=== PATIENT | female | born 1960 | race Caucasian/White ===

== ENCOUNTER 2019-08-01 11:15 | Emergency (ER) | payer SELFPAY ==
[2019-08-01] VITALS (10 sets, daily range): BP systolic 80–129; BP diastolic 37–86; PULSE 65–100; RESP 15–18; TEMP 36.4; O2SAT 94–98; BMI 23.8
--- NOTE | 2019-08-01 11:39 | ECG_ITS ---
Measurements Intervals [place] Rate: 66 P: 64 GA: 175 QRS: 82 QRSD: 75 T: 76 QT: 407 QTc: 427 SINUS RHYTHM No previous ECG available for comparison Electronically Signed On 08-01-2019 15:04:30 CDT by Howard Pires M.D. [email or web address]
--- NOTE | 2019-08-01 11:39 | CTR_ITS ---
PROCEDURE INFORMATION: Exam: CT Angiography Chest With Contrast Exam date and time: 08/01/2019 12:13 PM Age: 59 years old Clinical indication: Abdominal pain; Generalized; Additional info: Abd pain bruit TECHNIQUE: Imaging protocol: Computed tomographic angiography of the chest with intravenous contrast. COMPARISON: No relevant prior studies available. FINDINGS: The examination performed is degraded by motion artifact. Pulmonary arteries: Poorly opacified pulmonary arteries due to bolus timing, which precludes diagnostic assessment of potential pulmonary emboli. Aorta: Uniform opacification and normal caliber of the thoracic aorta. Lungs: Interstitial prominence, chronic granulomatous disease, and bilateral airspace disease. Pleural space: No significant pleural effusion. Heart: No cardiomegaly or significant pericardial effusion. Lymph nodes: Calcified lymph nodes in association with chronic granulomatous disease. 2.5 by 1.5 by 1.2 cm noncalcified right hilar lymph node. Bones/joints: Schmorl's nodes and marginal osteophytes. IMPRESSION: 1. Poorly opacified pulmonary arteries due to bolus timing, which precludes diagnostic assessment of potential pulmonary emboli. 2. Uniform opacification and normal caliber of the thoracic aorta. 3. Interstitial prominence, chronic granulomatous disease, and bilateral airspace disease. 4. Additional findings as described above. PROCEDURE INFORMATION: Exam: CT Angiography Abdomen and Pelvis With Contrast Exam date and time: 08/01/2019 12:13 PM Age: 59 years old Clinical indication: Abdominal pain; Generalized; Additional info: Abd pain bruit TECHNIQUE: Imaging protocol: Computed tomographic angiography of the abdomen and pelvis with intravenous contrast material. 3D rendering: MIP and/or 3D reconstructed images were created by the technologist. Radiation optimization: All CT scans at this facility use at least one of these dose optimization techniques: automated exposure control; mA and/or kV adjustment per patient size (includes targeted exams where dose is matched to clinical indication); or iterative reconstruction. Contrast material: OMNI 350; Contrast volume: 95 ml; Contrast route: RT AC; COMPARISON: Right upper quadrant ultrasound 08/01/2019. RADIATION DOSE METRICS: Total DLP: 473.32 mGy-cm FINDINGS: Vascular: Atherosclerotic plaque and vascular calcification. Normal caliber of the abdominal aorta. Patency of the celiac, mesenteric, renal, and iliac arteries. Liver: 9 mm nodular hypodensity in the right hepatic lobe, which was hyperechoic on ultrasound, suggesting hemangioma. Gallbladder and bile ducts: Cholelithiasis and marked gallbladder wall thickening/edema. Biliary ductal dilatation in association with ultrasound detected choledocholithiasis. Pancreas: Mild pancreatic ductal dilatation, without focal pancreatic mass. Spleen: Splenic granulomata. Adrenals: Unremarkable adrenals. Kidneys and ureters: Normal renal morphology. No hydronephrosis. Stomach and bowel: Gastric wall thickening. Mild small bowel dilatation without a focal transition zone. Prominent stool. Appendix: Appendix not visualized. Intraperitoneal space: No significant free fluid. Lymph nodes: Subcentimeter lymph nodes. Bladder: Bladder dilatation. Reproductive: Status post hysterectomy. 3.1 by 2.1 by 2.6 cm right adnexal cyst. Bones/joints: Degenerative change and disc bulging. CT/CT angio chest abdomen pelvis IMPRESSION: 1. Cholelithiasis and marked gallbladder wall thickening/edema. 2. Biliary ductal dilatation in association with ultrasound detected choledocholithiasis. 3. Gastric wall thickening. 4. Additional findings as described above. Radiation Dose CTDIVOL = (mGy): DLP = 473.32 (mGy-cm)
[2019-08-01] MEDS: morphine 4 mg/mL SDV 1 mL IVP ×2 (11:50→17:19)
[2019-08-01] MEDS: ondansetron 2 mg/ML SDV 2 mL 4 MG IVP (11:50)
--- NOTE | 2019-08-01 11:50 | W.ED.ABDPA2 ---
HPI - Abdominal Pain General: Chief Complaint: Abdominal Pain Stated Complaint: ABD PAIN/WEAK Time Seen by Provider: 08/01/19 11:24 History of Present Illness: HPI narrative: 59-year-old female comes in complaining nausea vomiting she was seen yesterday at the walk-in clinic she has epigastric pain that radiates into the middle of her back. She states the pain is feels like it is tearing and is progressively worsened she does have reflux but does not notice any worsening lately. She is not had any GI source of bleeding no coffee-ground emesis no hematemesis no melena. She denies any fever denies any dysuria urgency or frequency says the pain is bad enough it feels like it makes her short of breath. She denies any chest pain per se. The pain does seem to radiate down into the umbilical area as well. MD elicited complaint: abdominal pain Pertinent past history: none Onset (ago): day(s) (1) Pain Consistency: constant Location: Epigastric Severity: severe Quality: stabbing, sharp and other (Tearing) Radiation: back Migration to: periumbilical Exacerbating factors: nothing Relieving factors: nothing Associated Symptoms: Reports anorexia, dyspepsia, nausea and vomiting (1 time); Denies change in stool character, coffee ground emesis, GI cramping, diarrhea, dysuria, fever(s), heartburn, hematochezia, hematuria, hematemesis, fecal incontinence, loose stools and melena Review of Systems Const: Denies: fever(s) ENMT: Denies: throat pain, ear or mastoid pain, nasal discharge or nasal congestion Card: Denies: chest pain, edema, dyspnea on exertion or orthopnea Resp: Denies: dyspnea, productive cough or non-productive cough GI: Reports: nausea and vomiting (1 time); Denies: hematemesis, coffee ground emesis, heartburn, diarrhea, GI cramping, fecal incontinence, change in stool character, hematochezia or melena : Denies: dysuria or hematuria Skin/Breast: Denies: rash or pruritus PFS ED PFSH: Medical History Anxiety and depression COPD (chronic obstructive pulmonary disease) Hypercholesteremia Hypertension Insomnia Surgical History History of hemorrhoidectomy History of total hysterectomy Social History Smoking and tobacco status: current every day smoker Alcohol intake: never Physical Exam Const: COMMON NORMALS: no acute distress GENERAL APPEARANCE: cooperative and comfortable ORIENTATION/CONSCIOUSNESS: Yes awake, Yes oriented to person, Yes oriented to place and Yes oriented to time HENMT: COMMON NORMALS: normocephalic, atraumatic, hearing grossly normal bilaterally, external ears normal, EAC's normal, TM's normal bilaterally, Normal nasal mucous membranes and turbinates present, moist oral mucous membranes and oropharynx normal HEAD & SCALP: normocephalic and atraumatic NOSE: Normal nasal mucous membranes and turbinates present EXTERNAL EAR: Yes external ears normal EXTERNAL AUDITORY CANAL: EAC's normal TYMPANIC MEMBRANE: TM's normal bilaterally Eye: COMMON NORMALS: Equal, round and reactive pupils present, EOMs intact bilaterally, conjunctivae normal and no scleral icterus CONJUNCTIVA: Yes conjunctivae normal PUPIL: Yes Equal, round and reactive pupils present Neck/C-Spine: COMMON NORMALS: full ROM, no lymphadenopathy, supple and no JVD Lymph: LYMPHATIC: no lymphadenopathy noted and no lymphedema noted Resp: COMMON NORMALS: normal respiratory effort, No retractions, No use of accessory muscles and clear to auscultation bilaterally AUSCULTATION: clear to auscultation bilaterally Cardio: COMMON NORMALS: no JVD, regular rate, regular rhythm and No murmurs present (Cardio) RATE: regular rate RHYTHM: regular rhythm GI: COMMON NORMALS: Soft to palpation and No hepatosplenomegaly present AUSCULTATION: Yes normoactive bowel sounds PALPATION: Yes Soft to palpation, No Tenderness to palpation present (GI), No Guarding due to palpation present (GI) and Yes No hepatosplenomegaly present OTHER: Loud abdominal bruit heard just above the level of the umbilicus femoral pulses diminished on the left compared to the right Extremity: COMMON NORMALS: normal to inspection, capillary refill normal, no clubbing, cyanosis or edema, no calf tenderness and no pedal edema Neuro: SENSORIUM/ORIENTATION: Yes oriented to person, Yes oriented to place and Yes oriented to time Skin: COMMON NORMALS: no rashes or lesions noted GENERAL SKIN EXAM: no rashes or lesions noted Course Vital Signs: Vital signs: Vital Signs Temperature 97.5 F L 08/01/19 11:18 Pulse Rate 70 08/01/19 17:20 Respiratory Rate 16 08/01/19 17:20 Blood Pressure 108/75 08/01/19 17:20 Pulse Oximetry 98 08/01/19 17:20 MDM - Abdominal Pain MDM Narrative: Medical decision making narrative: On initial exam patient had a auscultate a bruit with pain radiating to her back was concerned she may have a dissecting aneurysm CTA showed no aneurysm. CT did show enlarged gallbladder liver enzymes and alk phos are elevated ultrasound shows choledocholithiasis with dilation of common bile duct gallbladder wall thickening and edema consistent with cholecystitis. She is allergic to penicillin was started on Cipro and Flagyl. She will need an ERCP we do not have that capability here discussed with the patient will make arrangements for transfer to [facility] in [place] with a can provide definitive care with MRCP and subsequent laparoscopic cholecystectomy. Lab Data: Labs: Lab Results 08/01/19 08/01/19 08/01/19 Range/Units 11:44 11:44 11:44 WBC 14.1 H (4.0-10.0) 10^3/ uL RBC 4.24 (4.1-5.3) 10^6/u L Hgb 13.5 (11.5-15.3) g/dL Hct 39.9 (37.0-47.0) % MCV 94.1 (81-99) fL MCH 31.8 (28.0-34.0) pg MCHC 33.8 (30.0-36.0) g/dL RDW 12.2 (12.1-15.1) % Plt Count 368 (130-400) 10^3/c mm MPV 11.4 H (7.4-10.4) fL Neut % (Auto) 62.3 % Lymph % (Auto) 30.3 % [place] % (Auto) 5.7 % Eos % (Auto) 1.0 % Baso % (Auto) 0.3 % Neut # (Auto) 8.8 H (1.8-7.7) 10^3/u L Lymph # (Auto) 4.3 (0.8-4.8) 10^3/u L [place] # (Auto) 0.8 (0.2-0.9) 10^3/u L Eos # (Auto) 0.1 (0.0-0.8) 10^3/u L Baso # (Auto) 0.0 (0.0-0.1) 10^3/u L Nucleated RBC % (a uto) 0 % Nucleated RBCs # 0.0 /100WBC PT (10.5-13.3) SECO NDS INR (0.8-1.2) APTT (23.9-36.7) SECO NDS Sodium 138 (136-145) mmol/L Potassium 3.9 (3.5-5.1) mmol/L Chloride 99 (98-107) mmol/L Carbon Dioxide 25 (22-29) mmol/L Anion Gap 17.9 (5-19) BUN 8 (6-20) mg/dL Creatinine 0.5 (0.5-0.9) mg/dL GFR Calculation 126.7 (90-130) mL/min Glucose 110 (65-115) mg/dL Calculated Osmolal ity 283 L (285-295) mOsm/k g Lactate (0.5-2.2) mmol/L Calcium 9.7 (8.5-10.5) mg/dL Total Bilirubin 0.4 (0.15-1.2) mg/dL AST 122 H (0-32) U/L ALT 49 H (0-33) U/L Alkaline Phosphata se 212 H (35-105) IU/L Troponin T Baselin e (0-10) ng/L Troponin T 120 Min [place] (0-10) ng/L Delta Troponin T (0-10) ABS# Total Protein 7.5 (6.6-8.7) g/dL Albumin 4.0 (3.5-5.2) g/dL Globulin 3.5 (1.3-4.6) g/dL Lipase 19 (13-60) U/L Urine Color (Yellow) Urine Appearance (CLEAR) Urine pH (5-7) Ur Specific Gravit y (1.005-1.030) Urine Protein (Negative) Urine Glucose (UA) (Normal) Urine Ketones (Negative) Urine Blood (Negative) Urine Nitrate (Negative) Urine Bilirubin (NEGATIVE) Urine Urobilinogen (Negative) mg/dL Ur Leukocyte [place]er[place]se (Negative) Blood Type A Negative Rho(D) Type Negative Antibody Screen Negative 08/01/19 08/01/19 08/01/19 Range/Units 11:44 11:44 11:54 WBC (4.0-10.0) 10^3/ uL RBC (4.1-5.3) 10^6/u L Hgb (11.5-15.3) g/dL Hct (37.0-47.0) % MCV (81-99) fL MCH (28.0-34.0) pg MCHC (30.0-36.0) g/dL RDW (12.1-15.1) % Plt Count (130-400) 10^3/c mm MPV (7.4-10.4) fL Neut % (Auto) % Lymph % (Auto) % [place] % (Auto) % Eos % (Auto) % Baso % (Auto) % Neut # (Auto) (1.8-7.7) 10^3/u L Lymph # (Auto) (0.8-4.8) 10^3/u L [place] # (Auto) (0.2-0.9) 10^3/u L Eos # (Auto) (0.0-0.8) 10^3/u L Baso # (Auto) (0.0-0.1) 10^3/u L Nucleated RBC % (a uto) % Nucleated RBCs # /100WBC PT 12.40 (10.5-13.3) SECO NDS INR 0.90 (0.8-1.2) APTT 29.4 (23.9-36.7) SECO NDS Sodium (136-145) mmol/L Potassium (3.5-5.1) mmol/L Chloride (98-107) mmol/L Carbon Dioxide (22-29) mmol/L Anion Gap (5-19) BUN (6-20) mg/dL Creatinine (0.5-0.9) mg/dL GFR Calculation (90-130) mL/min Glucose (65-115) mg/dL Calculated Osmolal ity (285-295) mOsm/k g Lactate 0.5 (0.5-2.2) mmol/L Calcium (8.5-10.5) mg/dL Total Bilirubin (0.15-1.2) mg/dL AST (0-32) U/L ALT (0-33) U/L Alkaline Phosphata se (35-105) IU/L Troponin T Baselin e 7 (0-10) ng/L Troponin T 120 Min [place] (0-10) ng/L Delta Troponin T (0-10) ABS# Total Protein (6.6-8.7) g/dL Albumin (3.5-5.2) g/dL Globulin (1.3-4.6) g/dL Lipase (13-60) U/L Urine Color (Yellow) Urine Appearance (CLEAR) Urine pH (5-7) Ur Specific Gravit y (1.005-1.030) Urine Protein (Negative) Urine Glucose (UA) (Normal) Urine Ketones (Negative) Urine Blood (Negative) Urine Nitrate (Negative) Urine Bilirubin (NEGATIVE) Urine Urobilinogen (Negative) mg/dL Ur Leukocyte [place]er[place] ase (Negative) Blood Type Rho(D) Type Antibody Screen 08/01/19 08/01/19 Range/Units 12:49 13:44 WBC (4.0-10.0) 10^3/ uL RBC (4.1-5.3) 10^6/u L Hgb (11.5-15.3) g/dL Hct (37.0-47.0) % MCV (81-99) fL MCH (28.0-34.0) pg MCHC (30.0-36.0) g/dL RDW (12.1-15.1) % Plt Count (130-400) 10^3/c mm MPV (7.4-10.4) fL Neut % (Auto) % Lymph % (Auto) % [place] % (Auto) % Eos % (Auto) % Baso % (Auto) % Neut # (Auto) (1.8-7.7) 10^3/u L Lymph # (Auto) (0.8-4.8) 10^3/u L [place] # (Auto) (0.2-0.9) 10^3/u L Eos # (Auto) (0.0-0.8) 10^3/u L Baso # (Auto) (0.0-0.1) 10^3/u L Nucleated RBC % (a uto) % Nucleated RBCs # /100WBC PT (10.5-13.3) SECO NDS INR (0.8-1.2) APTT (23.9-36.7) SECO NDS Sodium (136-145) mmol/L Potassium (3.5-5.1) mmol/L Chloride (98-107) mmol/L Carbon Dioxide (22-29) mmol/L Anion Gap (5-19) BUN (6-20) mg/dL Creatinine (0.5-0.9) mg/dL GFR Calculation (90-130) mL/min Glucose (65-115) mg/dL Calculated Osmolal ity (285-295) mOsm/k g Lactate (0.5-2.2) mmol/L Calcium (8.5-10.5) mg/dL Total Bilirubin (0.15-1.2) mg/dL AST (0-32) U/L ALT (0-33) U/L Alkaline Phosphata se (35-105) IU/L Troponin T Baselin e (0-10) ng/L Troponin T 120 Min [place] 6.00 (0-10) ng/L Delta Troponin T -1.00 L (0-10) ABS# Total Protein (6.6-8.7) g/dL Albumin (3.5-5.2) g/dL Globulin (1.3-4.6) g/dL Lipase (13-60) U/L Urine Color Yellow (Yellow) Urine Appearance Clear (CLEAR) Urine pH 6.5 (5-7) Ur Specific Gravit y 1.005 (1.005-1.030) Urine Protein Neg (Negative) Urine Glucose (UA) Norm (Normal) Urine Ketones Negative (Negative) Urine Blood Neg (Negative) Urine Nitrate Negative (Negative) Urine Bilirubin Neg (NEGATIVE) Urine Urobilinogen Norm (Negative) mg/dL Ur Leukocyte [place]er[place] ase Negative (Negative) Blood Type Rho(D) Type Antibody Screen Discharge Plan Discharge Patient Disposition: Xfer Short-Term Hosp Clinical Impression: Choledocholithiasis with acute cholecystitis Condition: Stable Referrals: Talib Mcmahan MD [Family Provider] - Discharge Date/Time: 08/01/19 17:21 Coding Level of Care Code ED Rail Technician for Chg Fwd Exam Comprehensive
[2019-08-01] MEDS: diphenhydrAMINE 50 mg/mL SDV 1mL 25 MG IVP (11:54)
[2019-08-01] MEDS: morphine 4 mg/mL SDV 1 mL 2 MG IVP (12:02)
[2019-08-01] MEDS: hydrocortisone inj 100 MG in sodium chloride 0.9% (100 ml) 100 ML 10.2 MG IV (12:02)
[2019-08-01 12:11] LABS: Partial Thromboplastin Time 29.4 SECONDS (23.9-36.7)
[2019-08-01 12:19] LABS: Alanine Aminotransferase 49 U/L (0-33); Alkaline Phosphatase 212 IU/L (35-105); Anion Gap 17.9 (5-19); Aspartate Amino Transferase 122 U/L (0-32); Blood Urea Nitrogen 8 mg/dL (6-20); Calcium 9.7 mg/dL (8.5-10.5); Carbon Dioxide 25 mmol/L (22-29); Chloride 99 mmol/L (98-107); Globulin 3.5 g/dL (1.3-4.6); Glomerular Filtration Rate 126.7 mL/min (90-130); Glucose 110 mg/dL (65-115); Lipase 19 U/L (13-60); Osmolality Calculated 283 mOsm/kg (285-295); Potassium 3.9 mmol/L (3.5-5.1); Sodium 138 mmol/L (136-145); Total Bilirubin 0.4 mg/dL (0.15-1.2); Total Protein 7.5 g/dL (6.6-8.7)
[2019-08-01 12:20] LABS: Troponin(5th) Baseline 7 ng/L (0-10)
[2019-08-01 12:21] LABS: Lactate (Lactic Acid level) 0.5 mmol/L (0.5-2.2)
--- NOTE | 2019-08-01 12:26 | PC.NURSE ---
Patient in another treatment room. Patient moved to room 11. Assumed care.
--- NOTE | 2019-08-01 12:34 | USR_ITS ---
PROCEDURE INFORMATION: Exam: US Abdomen Limited, Right Upper Quadrant Exam date and time: 08/01/2019 1:15 PM Age: 59 years old Clinical indication: Abdominal pain; Additional info: Abd pain TECHNIQUE: Imaging protocol: Real-time ultrasound of the abdomen with image documentation. Examination was focused on the right upper quadrant. COMPARISON: CT angio chest abdomen pelvis 08/01/2019 12:23 PM FINDINGS: Liver: No focal hepatic mass. Well-circumscribed 14 x 8 x 9 mm hyperechoic nodular lesion in the right hepatic lobe, suggesting hemangioma. Gallbladder: Cholelithiasis, 5 mm gallbladder polyp, and gallbladder wall thickening/edema. Assessment of a sonographic Alvarez sign was not reported by the scanning technologist. Common bile duct: Choledocholithiasis and biliary ductal dilatation, with the common bile duct measuring 7 mm in diameter. Pancreas: No acute sonographic abnormality in the visualized pancreas. Right kidney: Normal right renal morphology. No hydronephrosis. Aorta: Normal caliber of the visualized abdominal aorta. Inferior vena cava: Unremarkable IVC. US/US gall bladder [id number] IMPRESSION: 1. Cholelithiasis, 5 mm gallbladder polyp, and gallbladder wall thickening/edema. 2. Choledocholithiasis and biliary ductal dilatation, with the common bile duct measuring 7 mm in diameter.
[2019-08-01 12:43] LABS: Basophils % 0.3 %; Eosinophils # 0.1 10^3/uL (0.0-0.8); Hematocrit 39.9 % (37.0-47.0); Hemoglobin 13.5 g/dL (11.5-15.3); Lymphocytes # 4.3 10^3/uL (0.8-4.8); Lymphocytes % 30.3 %; Mean Corpuscular HGB Conc 33.8 g/dL (30.0-36.0); Mean Corpuscular Hemoglobin 31.8 pg (28.0-34.0); Mean Corpuscular Volume 94.1 fL (81-99); Mean Platelet Volume 11.4 fL (7.4-10.4); Monocytes # 0.8 10^3/uL (0.2-0.9); Monocytes % 5.7 %; Neutrophils # 8.8 10^3/uL (1.8-7.7); Neutrophils % 62.3 %; Nucleated Red Blood Cells % 0 %; Platelet Count 368 10^3/cmm (130-400); Red Blood Count 4.24 10^6/uL (4.1-5.3); Red Cell Distribution Width 12.2 % (12.1-15.1); White Blood Count 14.1 10^3/uL (4.0-10.0)
--- NOTE | 2019-08-01 12:51 | PC.NURSE ---
Placed patient on bedpan and collected urine sample.
[2019-08-01] MEDS: metroNIDAZOLE IV 500 MG/100 ML PREMIX 100 MG IV (13:00)
[2019-08-01 13:17] LABS: Add Urine Microscopic? NO
[2019-08-01 13:20] LABS: Urine Appearance Clear (CLEAR); Urine Color Yellow (Yellow)
[2019-08-01 13:21] LABS: Bilirubin Urine Neg (NEGATIVE); Blood Urine Neg (Negative); Glucose Urine UA Norm (Normal); Ketones Urine Negative (Negative); Leukocyte Esterase Urine Negative (Negative); Nitrate Urine Negative (Negative); Protein Urine Neg (Negative); Specific Gravity, Urine 1.005 (1.005-1.030); Urobilinogen Urine Norm (Negative); pH Urine 6.5 (5-7)
[2019-08-01] MEDS: ciprofloxacin 400 MG/200 ML PREMIX 200 MG IV (14:01)
[2019-08-01] MEDS: sodium chloride 0.9% 1,000 ML 999 ML IV (14:20)
[2019-08-01] MEDS: iohexol 350 mg/mL 100 mL Btl IV (14:43)
--- NOTE | 2019-08-01 17:39 | ECG_ITS ---
Measurements Intervals [place] Rate: 76 P: 59 IA: 162 QRS: 79 QRSD: 79 T: 74 QT: 370 QTc: 418 SINUS RHYTHM WITH SINUS ARRHYTHMIA No previous ECG available for comparison Electronically Signed On 08-02-2019 21:07:27 CDT by Howard Pires M.D. [email or web address]
== END 2019-08-01 17:21 | disposition short-term general hospital (02) ==
PROVIDERS: Emergency Provider Family Medicine; Family Provider Family Medicine
DX: K80.42 Calculus of bile duct with acute cholecystitis without obstruction (principal); J44.9 Chronic obstructive pulmonary disease, unspecified; I10 Essential (primary) hypertension; F17.210 Nicotine dependence, cigarettes, uncomplicated
CPT/HCPCS: 12345; 36415; 71275; 74174; 76705; 80053; 81003; 83605; 83690; 84484; 85025; 85610; 85730; 86850; 86900; 87040; 87077; 87186; 87205; 93005; 96365; 96366; 96367; 96368; 96375; 96376; 99283; 99285; J0744; J1200; J1720; J2270; J2405; J7030; Q9967; S0030

== ENCOUNTER 2019-09-04 06:44 | Outpatient (CLI) | payer SELFPAY ==
--- NOTE | 2019-09-04 07:15 | MR_ITS ---
WS: [id number] MRI LUMBAR SPINE NONCONTRAST TECHNIQUE: Sagittal T1, T2 and STIR imaging. Axial T1 and T2 imaging. CLINICAL INFORMATION: back pain COMPARISON: MRI 9 FINDINGS: Mild lumbar curve. No acute compression. Mild disc bulging L4-L5 and L5-S1 with endplate degenerative changes. L1-L2: Normal. L2-L3: Normal L3-4: No significant disc bulging. Mild facet arthropathy. Spinal canal and foramen are patent. L4-5: Slight annular bulging with impingement left subarticular recess and traversing left L5 nerve r oot. Mild left and no significant right foraminal narrowing. Moderate facet arthropathy. L5-S1: Shallow bilobed central protrusion impinges the traversing S1 nerve roots bilaterally, left gr eater than right. Recommend correlation for left S1 nerve root symptoms. Moderate right and mild left foraminal narrowing. Mild facet arthropathy. Visualized pelvic bony structures: Normal. Paravertebral soft tissues: Normal. MR/MR lumbar spine wo con* [id number] IMPRESSION: 1. Mild lumbar curve. No acute compression. Disc bulging worse L4-L5 and L5-S1 similar to 2016. 2. Disc bulging L4-5 with impingement on traversing left L5 nerve root with mi ld left foraminal narrowing. This appears unchanged since 2016. 3. Shallow central protrusion with impingement on the traversing left greater than right S1 nerve roots. This is progressed slightly since 2016. Moderate rig ht foraminal narrowing with impingement on the exiting right L5 nerve root appe ars unchanged. Mild left foraminal narrowing at this level. 4. Moderate facet arthropathy 6 L4-L5 and L5-S1.
== END 2019-09-04 06:45 | disposition home or self-care (01) ==
LOC: RADSHAW 06:47
PROVIDERS: PCP Family Medicine; Visit Provider Family Medicine
DX: M54.9 Dorsalgia, unspecified (principal); M51.26 Other intervertebral disc displacement, lumbar region; M47.817 Spondylosis without myelopathy or radiculopathy, lumbosacral region
CPT/HCPCS: 36415; 72148; 80061; 80076

== ENCOUNTER 2021-01-11 12:55 | Outpatient (CLI) | payer MEDICAID, SELFPAY ==
--- NOTE | 2021-01-11 13:03 | XR_ITS ---
WS: [id number] LUMBAR SPINE: 3 VIEWS TECHNIQUE: AP, lateral and L5-S1 spot. HISTORY: LOWER BACK PAIN COMPARISON: 04/12/2014 Lumbar vertebra are normally aligned. Severe disc space narrowing at L4-5 and L5-S1 with severe facet joint arthritis. Significant narrowin g of the foramina at the L5-S1 level. No fracture. SI joints are symmetric bilaterally. No soft tissue abnormalities. Prior cholecystectomy. Numerous calcifications within the aorta. XR/XR lumbar spine 2-3V* [id number] IMPRESSION: 1. Severe degenerative disc disease and facet arthritis at L4-5 and L5-S1. 2. No fracture. 3. Prior cholecystectomy.
== END 2021-01-11 12:56 | disposition home or self-care (01) ==
PROVIDERS: PCP Family Medicine; Visit Provider Internal Medicine
DX: M54.50 Low back pain, unspecified (principal); M51.36 Other intervertebral disc degeneration, lumbar region; Z90.49 Acquired absence of other specified parts of digestive tract
CPT/HCPCS: 72100

== ENCOUNTER 2021-05-12 12:34 | Outpatient (CLI) | payer MEDICAID, SELFPAY ==
--- NOTE | 2021-05-12 12:55 | XRR_ITS ---
PROCEDURE INFORMATION: Exam: XR Abdomen Exam date and time: 05/12/2021 12:56 PM Age: 61 years old Clinical indication: Abdominal pain; Generalized; Prior surgery; Surgery date: 6+ months; Surgery type: Gb/hyst; Patient HX: Chronic abd pain x 1 year; Additional info: Chronic abdominal pain TECHNIQUE: Imaging protocol: XR of the abdomen. Views: Frontal supine view of the abdomen. 1 View. COMPARISON: CT angio chest abdomen pelvis 08/01/2019 12:23 PM FINDINGS: Gastrointestinal tract: Normal. No bowel dilation. Bones/joints: Unremarkable. XR/XR KUB [id number] IMPRESSION: No acute findings.
== END 2021-05-12 12:35 | disposition home or self-care (01) ==
PROVIDERS: PCP Family Medicine; Visit Provider Family Medicine
DX: R10.9 Unspecified abdominal pain (principal); G89.29 Other chronic pain
CPT/HCPCS: 74018

== ENCOUNTER 2021-05-23 13:25 | Outpatient (CLI) | payer MEDICAID, SELFPAY ==
--- NOTE | 2021-05-23 13:40 | CT_ITS ---
WS: [id number] LDCT LUNG CANCER SCREENING HISTORY: HX OF TOBACCO USE TECHNIQUE: Axial imaging performed from the apices to 1 cm below the costophrenic angles. Coronal and sagittal reformats are submitted with axial MIP series. All CT scans at [facility] use at least one of these dose optimization techniques: automated exposure control; mA and/or kV adjustment per patient size (includes targeted exams where dose is matched to clinical indication); or iterativ e reconstruction. DLP: 74.51 mGy.cm DIvol: Mean CTDIvol: 1.60 (mGy) COMPARISON: 08/01/2019 Diagnostic quality: Satisfactory Lung Nodules: Mild diffuse groundglass attenuation throughout all lobes. There are a few 2 to 3 mm pu lmonary nodule at the LEFT apex. No mass or pneumonia. No endobronchial lesions. Heart: Normal size heart. No effusion. Other findings: Benign calcified RIGHT hilar lymph nodes. Very minimal atherosclerosis in the thoraci c aorta. Small hiatal hernia. Prior cholecystectomy. No adrenal mass. CT/CT lung screening [id number] IMPRESSION: LUNG-RADS: 2-Benign Appearance or Behavior FOLLOW UP: 12 Month: Continue annual screening with LDCT OTHER FINDINGS (S MODIFIER): None.
== END 2021-05-23 13:26 | disposition home or self-care (01) ==
PROVIDERS: PCP Family Medicine; Visit Provider Family Medicine
DX: Z12.2 Encounter for screening for malignant neoplasm of respiratory organs (principal); Z87.891 Personal history of nicotine dependence; M51.16 Intervertebral disc disorders with radiculopathy, lumbar region; M51.37 Other intervertebral disc degeneration, lumbosacral region
CPT/HCPCS: 71271; 72110; 99203; 99999

== ENCOUNTER 2021-06-02 09:45 | Outpatient (CLI) | payer MEDICAID, SELFPAY ==
--- NOTE | 2021-06-02 10:09 | MM_ITS ---
WS: [id number] Bilateral screening 3D tomosynthesis digital mammogram, 06/02/2021 Clinical Data: SCREENING Comparison: 04/30/2018, 10/04/2016. Findings: The breast parenchymal pattern shows heterogeneous density No spiculated masses or clustered calcific ations are seen. There are no secondary signs of carcinoma. MM/[place] [id number] Impression: 1. Negative bilateral mammogram unchanged. 2. Recommend annual screening mammograms. BIRADS: 1-Negative FOLLOW UP: 1 Year Follow-up The CAD production checker was used.
== END 2021-06-02 09:46 | disposition home or self-care (01) ==
LOC: RAD 09:50
PROVIDERS: PCP Family Medicine; Visit Provider Family Medicine
DX: Z12.31 Encounter for screening mammogram for malignant neoplasm of breast (principal)
CPT/HCPCS: 77063; 77067

== ENCOUNTER 2021-07-07 11:00 | Outpatient (CLI) | payer MEDICAID, SELFPAY ==
--- NOTE | 2021-07-07 11:45 | MR_ITS ---
WS: [id number] MRI LUMBAR SPINE NONCONTRAST HISTORY: Chronic low back pain with RIGHT leg pain and numbness. COMPARISON: 09/04/2019 TECHNIQUE: Sagittal and axial multisequence imaging is submitted. Mild increase in the thoracic kyphosis. Very minimal RIGHT curvature of the lumbar spine. Moderate disc space narrowing and desiccation at L4-5 and L5-S1. There is a small amount of marrow ed ger throughout the L5 vertebral body which is new when progressed since 2019. Conus terminates normally at L1. L1-L2: Normal. L2-L3: Normal. L3-L4: Very minimal facet joint arthritis. No stenosis. L4-L5: Mild diffuse annular disc bulging with a LEFT foraminal disc protrusion. There is flattening a nd encroachment upon the ventral thecal sac and narrowing of the LEFT foramen. Mild progression of th e degenerative disc disease since the prior study with moderate ligamentum flavum and facet arthritis . There is impingement upon the traversing LEFT L5 nerve root with moderate LEFT foraminal stenosis a nd mild contact on the LEFT L4 nerve root. Mild RIGHT foraminal stenosis. L5-S1: Diffuse annular disc bulging. Central disc protrusion with mild contact on the thecal sac. The re is an additional shallow disc protrusion in the RIGHT foramen. Disc protrusion contacts the unders urface of the exiting RIGHT L5 nerve root. Moderate facet joint arthritis. Very mild encroachment upo n the subarticular recesses. Moderate bilateral foraminal stenosis, RIGHT greater than LEFT. Paravertebral soft tissues are normal. MR/MR lumbar spine wo con* [id number] IMPRESSION: 1. Diffuse annular disc bulging with a LEFT foraminal disc protrusion at L4-5. Mild progression since the prior study. There is disc impingement upon the tra versing LEFT L5 nerve root with moderate LEFT foraminal stenosis. Mild contact on the LEFT L4 nerve root. 2. Mild RIGHT foraminal stenosis at L4-5. 3. Diffuse annular disc bulging with a central and RIGHT foraminal disc protru sions. Mild disc encroachment upon the subarticular recesses. Moderate bilatera l foraminal stenosis, RIGHT greater than LEFT with disc contacting the RIGHT L5 nerve root. 4. Advanced degenerative disc disease at L4-5 and L5-S1 with mild progression of marrow edema and L5.
== END 2021-07-07 11:01 | disposition home or self-care (01) ==
PROVIDERS: PCP Family Medicine; Visit Provider Physician Assistant
DX: M54.16 Radiculopathy, lumbar region (principal)
CPT/HCPCS: 72148

== ENCOUNTER → 2021-08-01 08:33 | Outpatient (BNVA) | payer MEDICAID, SELFPAY | PROVIDERS: PCP Family Medicine; Visit Provider Physician Assistant | DX: M51.37 Other intervertebral disc degeneration, lumbosacral region (principal); M51.36 Other intervertebral disc degeneration, lumbar region; M54.16 Radiculopathy, lumbar region | CPT/HCPCS: 99203; 99204; 99213 ==

== ENCOUNTER 2021-10-25 | Day surgery (SDC) | payer MEDICAID, SELFPAY ==
--- NOTE | 2021-10-25 | SCC_ITS ---
Procedure done: 1. L5/S1 Interbody fusion with posterolateral fusion 2. Instrumentation L4-S1 3. Lumbopelvic instrumentation 4. Cage at L5/S1 5. Laminectomy L4/5 laminectomy with partial facetectomies 6. Laminectomy L5/S1 laminectomy with partial facetomies 7. use of autograft from same incision 8. allograft 9. Bone marrow aspirate from right iliac crest 10.Use of computer navigation 20 seconds of fluoroscopic guidance, for a cumulative dose of 25.5 mGy, was provided to Dr. Conde by the radiology department. C-arm images of the lumbar spine were saved for the patient's permanent record. [facility]
--- NOTE | 2021-10-25 | XR_ITS ---
WS: [id number] Lumbar spine, C-arm fluoroscopy views, 10/25/2021 Clinical Data: L4 to the sacrum instrumented fusion Comparison: Lumbar spine, 05/23/2021. Findings: Dr. Conde performed a posterior lumbosacral fusion from L4 to S1. Reason artificial disc at L5-S1. XR/XR lumbar spine 2-3V* [id number] Impression: Posterior lumbosacral fusion L4-S1.
--- NOTE | 2021-10-25 06:27 | P.ANESUD_ITS ---
Pre-Anesthetic Update Pre-Anesthetic Assessment: Date of Surgery/Procedure: 10/25/21 Preop Chantale gnosis: Degenerative disc disease lumbar spine, low back pain with radiculopathy Proposed Procedure: Operation Date: 10/25/21 07:00 Proposed Procedures p PSF L4-S1 [id number]/M54.16(Not Applicable) - Kulwinder Conde, DO Any changes to Pre-Anesthetic Assessment?: No Last Intake: > 8 hrs Exam: Pre-Anes Outpt Exam: alert, oriented x 3, clear to auscultation bilaterally and regular rate & rhythm Cardiac Studies: No Data to Display
== END 2021-10-25 23:00 | disposition home or self-care (01) ==
LOC: OR 12-17 19:32
PROVIDERS: PCP Family Medicine; Visit Provider Orthopaedic Surgery
DX: Z01.818 Encounter for other preprocedural examination (principal)
CPT/HCPCS: 72100; 76000; 86850; 86900

== ENCOUNTER 2021-10-25 12:12 | Inpatient (IN) | payer MEDICAID, SELFPAY ==
[2021-10-20 09:33] VITALS: BMI 21.9
--- NOTE | 2021-10-20 10:08 | P.ANESASSM_ITS ---
Pre-Anesthetic Assessment Height/Weight: Height 1.57 m Weight 54.431 kg Preop Diagnosis: Degenerative disc disease lumbar spine, low back pain with radiculopathy PLIF Familial anesthetic complications: None Social Tobacco and No alcohol Exam alert, oriented x 3, clear to auscultation bilaterally and regular rate & rhythm Airway Mallampati: Class II Dentition: false Pulmonary Chronic Obstructive Pulmonary Disease CV/HEM Hypertension None reported Hepatic None reported GI Gastroesophageal Reflux Disease Metabolic None reported Musc/skel Fibromyalgia, Lower Back Pain and Osteoarthritis/DJD Neuropsych None reported Anesthetic Plan ASA status: 2 Anesthesia: General Risk of > 500 ml blood loss (7ml/kg in children): Yes, adequate IV access and fluids planned Medications/Allergies Home Medications Medication Instructions Recorded Confirmed Last Taken Type diclofenac sodium 75 mg 75 mg PO BID 30 days #60 tabs 10/12/20 10/20/21 Unknown Rx tablet,delayed release lisinopril 20 mg tablet 20 mg PO DAILY #90 tabs 11/07/20 10/20/21 Unknown Rx citalopram 40 mg tablet 40 mg PO DAILY #90 tabs 01/09/21 10/20/21 Unknown Rx pregabalin 200 mg capsule (Lyrica) 200 mg PO BID 30 days #60 caps 02/20/21 10/20/21 Unknown Rx clonazepam 1 mg tablet 1 mg PO TID #90 tabs 03/13/21 10/20/21 Unknown Rx omeprazole 20 mg capsule,delayed 20 mg PO DAILY #90 caps 03/13/21 10/20/21 Unknown Rx release hydrocodone 10 mg-acetaminophen 1 tab PO Q8H PRN chronic pain 30 06/08/21 10/20/21 Unknown Rx 325 mg tablet days #90 tabs cyclobenzaprine 10 mg tablet 10 mg PO BEDTIME 10/20/21 10/20/21 Unknown History estradiol 1 mg tablet 1 mg PO DAILY 10/20/21 10/20/21 Unknown History tiotropium bromide 18 mcg capsule 1 cap inhalation DAILY 10/20/21 10/20/21 Unknown History with inhalation device (Spiriva with HandiHaler) Allergies Allergy/AdvReac Type Severity Reaction Status Date / Time acetaminophen [From Percocet] Allergy ITCHING Verified 08/01/21 08:41 codeine Allergy ITCH Verified 08/01/21 08:41 Iodinated Contrast Media Allergy RASH Verified 08/01/21 08:41 nalbuphine [From Nubain] Allergy ANAPHYLAXIS Verified 08/01/21 08:41 oxycodone [From Percocet] Allergy ITCHING Verified 08/01/21 08:41 penicillin V Allergy SWELLING Verified 08/01/21 08:41 [facility] Anesthesia Medical History Anxiety and depression COPD (chronic obstructive pulmonary disease) Hypercholesteremia Hypertension Hypoestrogenism Insomnia Lumbar back pain with radiculopathy affecting lower extremity Surgical History History of cholecystectomy History of hemorrhoidectomy History of total hysterectomy Social History (Updated 10/20/21 @ 09:25 by Lucila Mcgill) Smoking and tobacco status: current every day smoker cigarettes Years cigarettes smoked: 45 Number of cigarettes per day: >20 Second hand smoke exposure: No Smoking risk assessment/counseling performed?: No Alcohol intake: never Data Anesthesia Cardiac Studies: No Data to Display
[2021-10-20 10:13] LABS: Basophils # 0.1 10^3/uL (0.0-0.1); Basophils % 0.6 %; Eosinophils # 0.1 10^3/uL (0.0-0.8); Eosinophils % 0.9 %; Hematocrit 45.6 % (37.0-47.0); Hemoglobin 15.3 g/dL (11.5-15.3); Lymphocytes # 5.1 10^3/uL (0.8-4.8); Lymphocytes % 46.6 %; Mean Corpuscular HGB Conc 33.6 g/dL (30.0-36.0); Mean Corpuscular Hemoglobin 30.5 pg (28.0-34.0); Mean Corpuscular Volume 90.8 fl (81-99); Mean Platelet Volume 10.9 fL (7.4-10.4); Monocytes # 0.5 10^3/uL (0.2-0.9); Monocytes % 4.6 %; Neutrophils # 5.12 10^3/uL (1.8-7.7); Neutrophils % 47.1 %; Nucleated Red Blood Cells % 0 %; Platelet Count 309 10^3/cmm (130-400); Red Blood Count 5.02 10^6/uL (4.1-5.3); Red Cell Distribution Width 12.9 % (12.1-15.1); White Blood Count 10.9 10^3/uL (4.0-10.0)
[2021-10-25] VITALS (31 sets, daily range): BP systolic 88–118; BP diastolic 55–74; PULSE 65–95; RESP 16–19; TEMP 36.3–37.1; O2SAT 94–99
--- NOTE | 2021-10-25 06:49 | P.HP_ITS ---
Providers/Chief Complaint Primary Care Provider: Tramaine Elias MD Chief Complaint: PSF L4-S1 [id number]/M54.16 History of Present Illness Rylee Holder is a 61 year old female atient reports pain at a 10/10 upon awakening, then decreases after taking hydrocodone as prescribed. Patient states she plays in her pool for exercise and states the cold water helps with her pain.? He reports equal back and leg pain with right leg greater than left.? Any activities make it much worse bending twisting lifting.? She provides care for her .? 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 She can only walk a short distance before her right leg becomes very weak and she is needs to sit down.? She denies any loss of bowel or bladder control.? She has been through injections in the past which have not afforded her any relief.? She is wanting something more definitive done. Review of Systems General: Reports: 10 or more systems reviewed and unremarkable except in HPI and below Const: Denies: fever(s), chills, body aches, fatigue or change in sleep pattern Eyes: Denies: change in vision Card: Denies: chest pain or dyspnea on exertion Resp: Denies: dyspnea, productive cough or wheezing GI: Denies: abdominal pain, nausea or vomiting Musc: Reports: extremity swelling, joint pain, joint swelling and limited range of motion; Denies: neck pain, back pain or extremity pain Neuro: Reports: numbness in extremities; Denies: headache(s) or difficulty walking Medications/Allergies Home Medications Medication Instructions Recorded Confirmed Last Taken Type diclofenac sodium 75 mg 75 mg PO BID 30 days #60 tabs 10/12/20 10/25/21 10/24/21 Rx tablet,delayed release lisinopril 20 mg tablet 20 mg PO DAILY #90 tabs 11/07/20 10/25/21 10/24/21 Rx citalopram 40 mg tablet 40 mg PO DAILY #90 tabs 01/09/21 10/25/21 10/24/21 Rx pregabalin 200 mg capsule (Lyrica) 200 mg PO BID 30 days #60 caps 02/20/21 10/25/21 10/24/21 Rx clonazepam 1 mg tablet 1 mg PO TID #90 tabs 03/13/21 10/25/21 10/24/21 Rx omeprazole 20 mg capsule,delayed 20 mg PO DAILY #90 caps 03/13/21 10/25/21 10/24/21 Rx release hydrocodone 10 mg-acetaminophen 1 tab PO Q8H PRN chronic pain 30 06/08/21 10/25/21 10/24/21 Rx 325 mg tablet days #90 tabs cyclobenzaprine 10 mg tablet 10 mg PO BEDTIME 10/20/21 10/25/21 10/24/21 History estradiol 1 mg tablet 1 mg PO DAILY 10/20/21 10/25/21 10/24/21 History tiotropium bromide 18 mcg capsule 1 cap inhalation DAILY 10/20/21 10/25/21 10/25/21 History with inhalation device (Spiriva with HandiHaler) Allergies Allergy/AdvReac Type Severity Reaction Status Date / Time acetaminophen [From Percocet] Allergy ITCHING Verified 08/01/21 08:41 codeine Allergy ITCH Verified 08/01/21 08:41 Iodinated Contrast Media Allergy RASH Verified 08/01/21 08:41 nalbuphine [From Nubain] Allergy ANAPHYLAXIS Verified 08/01/21 08:41 oxycodone [From Percocet] Allergy ITCHING Verified 08/01/21 08:41 penicillin V Allergy SWELLING Verified 08/01/21 08:41 PFSH Acute PFSH: Medical History Anxiety and depression COPD (chronic obstructive pulmonary disease) Hypercholesteremia Hypertension Hypoestrogenism Insomnia Lumbar back pain with radiculopathy affecting lower extremity Surgical History History of cholecystectomy History of hemorrhoidectomy History of total hysterectomy Social History (Updated 10/20/21 @ 09:25 by Lucila Mcgill) Smoking and tobacco status: never smoked Second hand smoke exposure: No Smoking risk assessment/counseling performed?: No Alcohol intake: never Physical Exam Narrative: Narrative:?? EXAM NARRATIVE: Jonathan alexander is alert and travis ented x3 she has g ood general appear ance normal mood n ormal affect.? She can raise up on h er heels and toes she can forward be nd to her knees sh catherine can extend with increased pain.? S he has palpable pa in to the paraspin ous musculature of the lumbar spine. ? She is positive straight leg raise on the right wors e than left.? Feet are warm good cap refill calves are supple no medial thigh tenderness d orsalis pedis post erior pulses are p alpable.. HENMT:?? COMMON NORMALS: no rmocephalic? HEAD & SCALP: normoceph alic Resp:?? COMMON NORMALS: no rmal respiratory e ffort Cardio:?? COMMON NORMALS: re gular rate and reg ular rhythm? RATE: regular rate? RHY THM: regular rhyth m GI:?? COMMON NORMALS: So ft to palpation an d non-tender? PALP ATION: Yes Soft to palpation :?? COMMON NORMALS: Ye s no CVA tendernes s? BLADDER/KIDNEY EXAM: Yes no CVA t enderness Back/Pelvis:?? COMMON NORMALS: no CVA tenderness Psych:?? COMMON NORMALS: me ntal status grossl y normal and coope rative Data : 10/20/21 10:03 A&P Assessment and plan (1) Lumbar back pain with radiculopathy affecting lower extremity: L4-pelvis fusion Status: Acute Attestations Medical Necessity Statement*: failed conservative tx Coding Level of Care Code Acute Eligibility Counselor for [employer] Fwd Diagnoses Lumbar back pain with radiculopathy affecting lower extremity M54.16
[2021-10-25] MEDS: sodium chloride 0.9% 1,000 ML 30 ML IV (07:00)
[2021-10-25] MEDS: clindamycin 900 MG/50 ML PREMIX 100 MG IV (07:20)
--- NOTE | 2021-10-25 07:50 | SUR.OPER ---
Family Notified Of Patient's Status Via Phone.
[2021-10-25] MEDS: heparin, porcine 1,000 unit/mL INJ 10 mL 10000 UNIT IRRIGATION (07:53)
--- NOTE | 2021-10-25 09:05 | SUR.OPER ---
Family Notified Of Patient's Status Via Phone.
[2021-10-25] MEDS: vancomycin 1,000 MG SDV 1000 MG XX (09:33)
[2021-10-25] MEDS: fentaNYL 50 mcg/mL INJ 2mL IVP ×2 (11:02→11:12)
--- NOTE | 2021-10-25 11:08 | P.OP_ITS ---
Operative Report Date of procedure: October 25, 2021 Pre-op diagnosis: Preop Diagnosis Degenerative disc disease lumbar spine, low back pain with radiculopathy Post-op diagnosis: same Procedure done: 1. L5/S1 Interbody fusion with posterolateral fusion 2. Instrumentation L4-S1 3. Lumbopelvic instrumentation 4. Cage at L5/S1 5. Laminectomy L4/5 laminectomy with partial facetectomies 6. Laminectomy L5/S1 laminectomy with partial facetomies 7. use of autograft from same incision 8. allograft 9. Bone marrow aspirate from right iliac crest 10.Use of computer navigation Surgeon: Kulwinder Conde Watch Engine Operator: Miah Burnham Watch Engine Operator: The surgical scrub tech, Miah Burnham, PAC was needed for his expertise under the microscope. He was important and necessary throughout the procedure to complete in a safe and timely manner. He assisted with patient positioning prepping and draping tissue retraction suctioning of the operative field protection of the dural sac and tissue closure Estimated blood loss (mL): 500 Procedure: 1. L5/S1 Interbody fusion with posterolateral fusion 2. Instrumentation L4-S1 3. Lumbopelvic instrumentation 4. Cage at L5/S1 5. Laminectomy L4/5 laminectomy with partial facetectomies 6. Laminectomy L5/S1 laminectomy with partial facetomies 7. use of autograft from same incision 8. allograft 9. Bone marrow aspirate from right iliac crest 10.Use of computer navigation Patient is brought to the operative suite. After undergoing anesthesia, the patient had neuro monitoring attached. Patient was then placed in the prone position on the Scott table. All areas of impingement were well-padded. Patient was then prepped and draped in the normal sterile fashion. Skin incision was then made from L4 down to S1. Subperiosteal dissection was made out to the transverse processes of L4 and L5 and out to the sacral ala was bilaterally. Next the [employer] bone marrow aspirate kit was used to aspirate bone marrow aspirate. This was done by using the sharp probe to open up the bone into the right iliac crest. Aspiration was performed and then the blunt probe was then used to dissect down to through the bone tunnel. An aspirating well drawn back a millimeter approximately 20 cc of bone marrow aspirate was used. And mixed with the allograft and autograft bone that will be used. Was brought to placing the fiducial for the computer navigation. This was done by placing 2 pins into the right iliac crest. The fiducial was attached to these pins. And then the C-arm was brought in and the information from the fiducial was linked into the computer in order to facilitate using the computer navigation plate screws. The pins were used for dressings were applied to be removed at the end of the case. The technique for placing the pedicle screws was to use a drill followed by the gearshift probe linked to the computer navigation. Followed by the ball probe to feel the superior inferior medial lateral mcneal of the pedicles. Then placement of the screws linked to computer navigation. Was done at each pedicle. Screws were placed at L4 bilaterally and L5 bilaterally and S1 bilaterally. Attention was then brought to placing the sacral ala iliac screws. This was done by using the gearshift probe linked to the computer navigation placed through the sacrum into the ala across the SI joint and into the iliac crest. Screws measured to be 80 this was done bilaterally. Pedicle probe was used to feel that the iliac crest mcneal were not breached. A tap was used under computer navigation and then 80 x 8.5 mm Taswell screws were placed in [employer] t echnique. Was brought to performing the L4-5 laminectomy with partial facetectomies. This was done by using high-speed bur Kerrison rongeurs and curettes. The lamina was taken down of L4 out to the pedicle of L4 and then down to the pedicle of L5. The frame was opened up completely bilaterally. The ligamentum flavum was taken out was taken. The Kerrison rongeur was used to open up the foramen and the facet was taken all the way out in order to facilitate freeing up the L4 nerve through the L4-5 foramen this was done bilaterally. And then the L5 nerve was traced around the L5 pedicle. Next attention was brought to performing the laminectomy ofL5. This was done using the high-speed bur Kerrisons and curettes. Once the lamina was removed and then attention was brought to performing a partial facetectomy on the contralateral side. This was done again using the high-speed bur curettes and Kerrisons. The ligamentum flavum was taken down bilaterally from L5 to S1. Attention was then brought to the facet on the ipsilateral side. The facet was taken down. The S1 nerve was decompressed as it passed around the S1 pedicle. The laminectomy was done for purposes of decompressing the nerve as well as placement of the cage. The L5 nerve was identified as it traversed through the L5/S1 foramen. The thecal sac was identified and retracted. The L5/S1 disc base was identified. Using a knife the disc base was opened. And then sequential kimmy were placed. The first shaver was a 6 and the last shaver was a 8. Using a pituitary and down going curette the endplates were scraped and disc material was removed from the space. Once adequate decompression of the disc base was felt to be had. Osteoamp sponge was packed into the anterior aspect of the disc base. Then a size 8 cage from [employer] was placed after packing osteoamp into the cage. While placing the cage the thecal sac and S1 nerve was protected. C arm was used to ensure that the cages placed in the appropriate position. Attention was then brought to attaching the rods to the screws placed in the L4 bilaterally, L5 bilaterally S1 bilaterally and also to the sacral alar iliac screw that was placed bilaterally. Caps were torqued into position. Locking the construct in place. Wound was copiously irrigated and then attention was brought to decorticating the facets and transverse processes laterally. Bone that was taken down from the lamina was used along with osteoamp fibers and sponges were packed into the lateral gutters along the facet joints. This was done bilaterally. Wound was then closed in a layered fashion starting with the thoracolumbar fascia. 0-vicryl was used the sub cutaneous tissue was closed with 2-0 vicryl and skin with 4-0 monocryl. Glue was then used to seal the skin and a steril dressing was applied. Patient was then placed in the supine position. The endotracheal tube was removed and patient was transferred to the PACU in stable condition.
[2021-10-25] MEDS: HYDROmorphone 1 mg/mL INJ 1 mL ×2 (11:25→11:40)
[2021-10-25] MEDS: albumin 12.5 GM/250 ML VIAL IV (11:53)
[2021-10-25] MEDS: HYDROmorphone 1 mg/mL INJ 1 mL 0.5 MG IVP (11:58)
[2021-10-25] MEDS: lactated ringers 1,000 ML 90 ML IV (13:18)
[2021-10-25] MEDS: ketorolac 30 mg/mL INJ IVP ×2 (14:18→20:32)
--- NOTE | 2021-10-25 15:56 | ANE.PACU2 ---
Inpatient post-anesthesia follow up: Airway intact: Yes Vital signs: Temperature 97.7 F Pulse Rate 68 Respiratory Rate 17 Blood Pressure 97/62 Pulse Oximetry 97 Oxygen Delivery Me thod Room Air Oxygen Flow Rate 3 Fraction of Inspir ed Oxygen Hydration adequate: Yes Nausea and vomiting: No Pain level: 4 Mental status: Baseline
[2021-10-25] MEDS: CLONazepam 1 mg Tablet PO ×2 (16:41→20:32)
[2021-10-25] MEDS: docusate sodium 100 mg Capsule PO (16:41)
[2021-10-25] MEDS: clindamycin 600 MG/50 ML PREMIX 100 MG IV (16:42)
[2021-10-25] MEDS: nicotine 14 mg Patch 1 PATCH TRANSDERMA (17:34)
[2021-10-25] MEDS: pregabalin 100 mg Capsule 200 MG PO (20:32)
[2021-10-25] MEDS: cyclobenzaprine 10 mg Tablet PO (20:32)
[2021-10-26] MEDS: clindamycin 600 MG/50 ML PREMIX 100 MG IV ×2 (00:11→06:33)
[2021-10-26] MEDS: HYDROcodone-acetaminophen 10-325 mg Tablet 1 TAB PO (00:25)
[2021-10-26 03:41] VITALS: BP 100/60; PULSE 81; RESP 18; TEMP 36.7; O2SAT 95
[2021-10-26 03:51] VITALS: RESP 16
[2021-10-26] MEDS: lactated ringers 1,000 ML 90 ML IV (03:54)
[2021-10-26] MEDS: ketorolac 30 mg/mL INJ IVP (06:31)
[2021-10-26 07:41] VITALS: PULSE 81; RESP 16; O2SAT 95
--- NOTE | 2021-10-26 07:47 | PM.PN ---
Subjective Subjective: POD 1 Patient resting comfortably. Reports mild back pain. Reports leg spasming but overall her legs have improved. Denies any headaches, shortness of breath, chest pain. Reports that she has been up walking the halls and is wanting to go home. Vitals/I&O/Wt Last Vital Signs Temp 98.1 F 10/26/21 03:41 Pulse 81 10/26/21 07:41 Resp 16 10/26/21 07:41 BP 100/60 10/26/21 03:41 Pulse Ox 95 10/26/21 07:41 O2 Del Method 10/26/21 07:41 O2 Flow Rate 3 10/25/21 11:36 10/25/21 10/26/21 10/26/21 22:59 06:59 14:59 Intake Total 356 / 2656 1184 / 3840 50 / 50 Output Total 250 / 1000 1700 / 2700 300 / 300 Balance 106 / 1656 -516 / 1140 -250 / -250 Physical Exam Narrative: Patient presents alert and oriented x3 with a good general appearance normal mood and affect. Normal coordination normal stability. Mild tenderness around the incisional site with the incision appear to be lean and dry. No signs of erythema or drainage. No signs of infection. Patient denies any fevers or chills. 5/5 motor strength both lower extremities with negative straight leg raise bilaterally. Calves are supple no medial thigh tenderness. Pulses are 2+ at the dorsalis pedis and posterior tibial region. Good capillary refill throughout normal sensation light touch both lower extremities. Urinary Catheter Management: Springer: Cath Placed During This Visit: yes, but has since been removed by the nurse Reason for Continuing Indwelling Catheter: Perioperative Use in Selected Surgeries Urinary Catheter Date of Insertion: 10/25/21 Urinary Catheter Time of Insertion: 07:18 Date Urinary Catheter Removed: 10/26/21 Time Urinary Catheter Discontinued: 07:47 Data : 10/20/21 10:03 A&P Assessment and plan (1) Status post lumbar spinal fusion: We will discontinue the Springer catheter and Hemovac drain. Physical therapy work with mobilization and stability with no bending lifting or twisting activities. Will discharge home later this morning. Encouraged incentive spirometry at home. She will take hydrocodone tens for pain she has Flexeril at home for spasms. We will see her back in the office in 1 week's time for wound check. She will call if she is having problems. Status: Acute Attestations Medical Necessity Statement*: Discharge home today Coding Level of Care Code Acute Medical Research Assistant for Cailin Torres Diagnoses Status post lumbar spinal fusion Z98.1
[2021-10-26 08:00] VITALS: BP 102/68; PULSE 72; RESP 16; TEMP 36.7; O2SAT 95
[2021-10-26] MEDS: docusate sodium 100 mg Capsule PO (10:07)
[2021-10-26] MEDS: CLONazepam 1 mg Tablet PO (10:07)
[2021-10-26] MEDS: citalopram 20 mg Tablet 40 MG PO (10:07)
[2021-10-26] MEDS: lisinopril 20 mg Tablet PO (10:07)
[2021-10-26] MEDS: pantoprazole DR 40 mg Tablet PO (10:07)
== END 2021-10-26 10:31 | disposition home or self-care (01) | DRG 455 ==
LOC: MEDSURG 13:11
PROVIDERS: Anesthesiology; Admitting Provider Orthopaedic Surgery; PCP Family Medicine; Visit Provider Orthopaedic Surgery
PROC: 0SG0071 Fusion of Lumbar Vertebral Joint with Autologous Tissue Substitute, Posterior Approach, Posterior Column, Open Approach (ICD-10-PCS; principal; 2021-10-25 07:00)
DX: M54.16 Radiculopathy, lumbar region (principal); F41.8 Other specified anxiety disorders; J44.9 Chronic obstructive pulmonary disease, unspecified; E78.00 Pure hypercholesterolemia, unspecified; I10 Essential (primary) hypertension; G47.00 Insomnia, unspecified
CPT/HCPCS: 36415; 51702; 85025; 94640; 97116; 97161; 97530; C1713; C9359; J1100; J1170; J1200; J1644; J1885; J2250; J2270; J2405; J2704; J2710; J3010; J3370; J3490; J7030; P9041

== ENCOUNTER → 2021-11-02 10:11 | Outpatient (BNVA) | payer MEDICAID, SELFPAY | PROVIDERS: PCP Family Medicine; Visit Provider Physician Assistant | DX: Z47.89 Encounter for other orthopedic aftercare (principal); Z98.1 Arthrodesis status | CPT/HCPCS: 99024 ==

== ENCOUNTER → 2021-11-09 10:46 | Outpatient (BNVA) | payer MEDICAID, SELFPAY | PROVIDERS: PCP Family Medicine; Visit Provider Physician Assistant | DX: Z47.89 Encounter for other orthopedic aftercare (principal); Z98.1 Arthrodesis status | CPT/HCPCS: 72100; 99024 ==

== ENCOUNTER 2021-11-16 17:03 | Inpatient (IN) | payer MEDICAID, SELFPAY ==
[2021-11-16] VITALS (7 sets, daily range): BP systolic 110–137; BP diastolic 72–90; PULSE 81–110; RESP 13–22; TEMP 37.1; O2SAT 14–99; BMI 21.0
--- NOTE | 2021-11-16 17:06 | XRR_ITS ---
PROCEDURE INFORMATION: Exam: XR Chest Exam date and time: 11/16/2021 5:22 PM Age: 61 years old Clinical indication: Chest pressure and chest wall pain; Patient HX: Status post back surgery 2 weeks ago; Additional info: Chest pain TECHNIQUE: Imaging protocol: Radiologic exam of the chest. Views: 1 view. COMPARISON: CT angio chest abdomen pelvis 08/01/2019 12:23 PM FINDINGS: Lungs: Calcified granulomas noted in the right lung. No consolidation. Pleural spaces: No pleural effusion. No pneumothorax. Heart/Mediastinum: No cardiomegaly. Bones/joints: Visualized osseous structures are intact. XR/XR chest 1V portable [id number] IMPRESSION: No acute findings.
--- NOTE | 2021-11-16 17:09 | ECG_ITS ---
[facility] Test Date: 2021-11-16 Pat Name: Rylee Holder Department: Room: Gender: Female Clinical Account Executive: : 1960 Requested By: Albino Martines Order Number: [id number] Elayne MD: Howard Pires M.D. Measurements Intervals [place] Rate: 93 P: 67 [place]: 167 QRS: 78 QRSD: 92 T: 76 QT: 322 QTc: 401 Interpretive Statements SINUS RHYTHM MODERATE ST DEPRESSION [0.05+ mV ST DEPRESSION] Early repolarization changes in the inferior leads Compared to ECG 08/01/2019 13:43:50 ST (T wave) deviation now present Electronically Signed On 11-16-2021 20:38:58 CDT by Howard Pires M.D. [id number]
--- NOTE | 2021-11-16 17:14 | PC.NURSE ---
ASA NOT GIVEN D/T DUPLICATE THERAPY FROM EMS PER DR CAMPOS
--- NOTE | 2021-11-16 17:21 | W.ED.CHESTPA ---
Documented by User: Albino Sainz DO 11/17/21 05:42 HPI - Chest Pain General: Chief Complaint: Chest Pain Stated Complaint: cp Time Seen by Provider: 11/16/21 17:06 Source: patient Mode of arrival: ambulatory History of Present Illness: 61-year-old female who presents to the emergency room with complaints of chest pain. She states chest pain began around 630 this morning. She took a nitro around 4:15 this afternoon as well as 4 mg of Zofran and 324 aspirin. She is still having chest discomfort now it radiates into her back. She did have lumbar back surgery about [address] Conde at this facility. complaint: chest pain Onset (ago): hour(s) Timing of current episode: episodic Onset: during rest Pain location: left chest Pain radiation: back Severity: moderate Quality: aching Relieving factors: nothing Exacerbating factors: nothing Context: recent surgery Associated symptoms: Deny abdominal pain, diaphoresis, dyspnea, fever(s), leg edema, nausea, palpitations, sense of impending doom, syncope or vomiting Treatment prior to arrival: aspirin and nitroglycerin Review of Systems Const: Denies: fever(s), chills, fatigue, malaise or diaphoresis ENMT: Denies: throat pain, ear or mastoid pain, nasal discharge or nasal congestion Card: Reports: chest pain; Denies: palpitations, irregular heart rhythm, edema or syncope Resp: Denies: dyspnea GI: Denies: abdominal pain, nausea or vomiting : Denies: flank pain, difficulty voiding, dysuria, urinary frequency or urinary urgency Skin/Breast: Denies: rash or pruritus [facility] ED PFSH: Medical History (Updated 11/17/21 @ 00:04 by Howard Pires MD) Anxiety and depression COPD (chronic obstructive pulmonary disease) Hypercholesteremia Hypertension Hypoestrogenism Insomnia Lumbar back pain with radiculopathy affecting lower extremity Surgical History History of cholecystectomy History of hemorrhoidectomy History of total hysterectomy Social History Smoking and tobacco status: never smoked Second hand smoke exposure: No Smoking risk assessment/counseling performed?: No Alcohol intake: never Physical Exam Const: COMMON NORMALS: no acute distress GENERAL APPEARANCE: cooperative and comfortable ORIENTATION/CONSCIOUSNESS: Yes awake, Yes oriented to person, Yes oriented to place and Yes oriented to time HENMT: COMMON NORMALS: normocephalic, atraumatic and hearing grossly normal bilaterally HEAD & SCALP: normocephalic and atraumatic Resp: COMMON NORMALS: normal respiratory effort, No retractions, No use of accessory muscles and clear to auscultation bilaterally AUSCULTATION: clear to auscultation bilaterally Cardio: COMMON NORMALS: regular rate, regular rhythm and No murmurs present (Cardio) RATE: regular rate RHYTHM: regular rhythm GI: COMMON NORMALS: Soft to palpation and No hepatosplenomegaly present AUSCULTATION: Yes normoactive bowel sounds PALPATION: Yes Soft to palpation, No Tenderness to palpation present (GI), No Guarding due to palpation present (GI) and Yes No hepatosplenomegaly present : COMMON NORMALS: Yes no CVA tenderness BLADDER/KIDNEY EXAM: Yes no CVA tenderness Back/Pelvis: COMMON NORMALS: no CVA tenderness Extremity: COMMON NORMALS: normal to inspection, capillary refill normal, no clubbing, cyanosis or edema, no calf tenderness and no pedal edema Neuro: SENSORIUM/ORIENTATION: Yes oriented to person, Yes oriented to place and Yes oriented to time Skin: COMMON NORMALS: no rashes or lesions noted GENERAL SKIN EXAM: no rashes or lesions noted Course Vital Signs: Vital signs: Vital Signs Temperature 98.2 F 11/17/21 04:00 Pulse Rate 83 11/17/21 04:00 Respiratory Rate 21 H 11/17/21 04:00 Blood Pressure 107/66 11/17/21 04:00 Pulse Oximetry 97 11/17/21 04:00 Oxygen Delivery Me thod 11/17/21 02:01 MDM - Chest Pain Medical Decision Making Care turned over to Dr. Phillips at change of shift. Patient presents with chest pain her 2-hour troponin is elevated consistent with an NSTEMI EKG shows no ST elevation CTA showed no pulm embolism spoke to hospitalist along with retail field representative will admit at this time. Medical Records I reviewed the patient's medical records. Lab Data I reviewed the patient's lab results. : 11/17/21 03:20 11/17/21 03:20 Radiology Impressions Chest X-Ray 11/16/21 17:06 IMPRESSION: No acute findings. Chest CTA 11/16/21 20:01 IMPRESSION: Negative for pulmonary embolism. No acute findings. Laboratory Results WBC 12.8 10^3/uL (4.0-10.0) H 11/16/21 17: RBC 3.64 10^6/uL (4.1-5.3) L 11/16/21 17: Hgb 10.5 g/dL (11.5-15.3) L 11/16/21 17:23 Hct 32.8 % (37.0-47.0) L 11/16/21 17: MCV 90.1 fl (81-99) 11/16/21 17: MCH 28.8 pg (28.0-34.0) 11/16/21 17: MCHC 32.0 g/dL (30.0-36.0) 11/16/21 17: RDW 13.6 % (12.1-15.1) 11/16/21 17: Plt Count 688 10^3/cmm (130-400) H 11/16/21 17:23 MPV 10.5 fL (7.4-10.4) H 11/16/21 17: Neut % (Auto) 62.0 % 11/16/21 17: Lymph % (Auto) 27.9 % 11/16/21 17:23 Maury % (Auto) 7.8 % 11/16/21 17:23 Eos % (Auto) 1.3 % 11/16/21 17: Baso % (Auto) 0.5 % 11/16/21 17: Neut # (Auto) 7.94 10^3/uL (1.8-7.7) H 11/16/21 17:23 Lymph # (Auto) 3.6 10^3/uL (0.8-4.8) 11/16/21 17: Maury # (Auto) 1.0 10^3/uL (0.2-0.9) H 11/16/21 17:23 Eos # (Auto) 0.2 10^3/uL (0.0-0.8) 11/16/21 17: Baso # (Auto) 0.1 10^3/uL (0.0-0.1) 11/16/21 17:23 Nucleated RBC % (auto) 0 % 11/16/21 17:23 Nucleated RBCs # 0.0 /100WBC 11/16/21 17:23 D-Dimer 2.14 ug/mIFEU (0-0.59) H 11/16/21 19:18 Sodium 137 mmol/L (136-145) 11/16/21 17:23 Potassium 4.1 mmol/L (3.5-5.1) 11/16/21 17:23 Chloride 97 mmol/L (98-107) L 11/16/21 17:23 Carbon Dioxide 23 mmol/L (22-29) 11/16/21 17:23 Anion Gap 21.1 (5-19) H 11/16/21 17:23 BUN 6 mg/dL (8-23) L 11/16/21 17:23 Creatinine 0.6 mg/dL (0.5-0.9) 11/16/21 17:23 GFR Calculation 102.0 mL/min (90-130) 11/16/21 17:23 Glucose 137 mg/dL (65-115) H 11/16/21 17:23 Calculated Osmolality 284 mOsm/kg (285-295) L 11/16/21 17:23 Calcium 9.5 mg/dL (8.5-10.5) 11/16/21 17:23 Troponin T Baseline 81 ng/L (0-10) H 11/16/21 17:23 Troponin T 120 Minute 265.5 ng/L (0-10) H 11/16/21 19:18 Delta Troponin T 184.5 ABS# (0-10) H* 11/16/21 19:18 Discharge Plan Discharge Patient Disposition: Admitted As Inpatient Admit Provider: Sridhar Padilla Clinical Impression: Non-ST elevation [place] (NSTEMI) Condition: Stable Coding Level of Care Code ED Assistant Offset Press Operator for Chg Fwd Exam Comprehensive Documented by User: Crystal Phillips MD 11/16/21 21:02 HPI - Chest Pain General: Chief Complaint: Chest Pain Stated Complaint: cp Time Seen by Provider: 11/16/21 17:06 PFSH ED PFSH: Medical History (Updated 11/17/21 @ 00:04 by Howard Pires MD) Anxiety and depression COPD (chronic obstructive pulmonary disease) Hypercholesteremia Hypertension Hypoestrogenism Insomnia Lumbar back pain with radiculopathy affecting lower extremity Surgical History History of cholecystectomy History of hemorrhoidectomy History of total hysterectomy Social History Smoking and tobacco status: never smoked Second hand smoke exposure: No Smoking risk assessment/counseling performed?: No Alcohol intake: never Course Vital Signs: Vital signs: Vital Signs Temperature 98.2 F 11/17/21 04:00 Pulse Rate 83 11/17/21 04:00 Respiratory Rate 21 H 11/17/21 04:00 Blood Pressure 107/66 11/17/21 04:00 Pulse Oximetry 97 11/17/21 04:00 Oxygen Delivery Me thod 11/17/21 02:01 MDM - Chest Pain Medical Decision Making Patient presents with chest pain her 2-hour troponin is elevated consistent with an NSTEMI EKG shows no ST elevation CTA showed no pulm embolism spoke to hospitalist along with retail field representative will admit at this time. Lab Data : 11/17/21 03:20 11/17/21 03:20 Radiology Impressions Chest X-Ray 11/16/21 17:06 IMPRESSION: No acute findings. Chest CTA 11/16/21 20:01 IMPRESSION: Negative for pulmonary embolism. No acute findings. Laboratory Results WBC 12.8 10^3/uL (4.0-10.0) H 11/16/21 17: RBC 3.64 10^6/uL (4.1-5.3) L 11/16/21 17: Hgb 10.5 g/dL (11.5-15.3) L 11/16/21 17: Hct 32.8 % (37.0-47.0) L 11/16/21 17: MCV 90.1 fl (81-99) 11/16/21 17:23 MCH 28.8 pg (28.0-34.0) 11/16/21 17:23 MCHC 32.0 g/dL (30.0-36.0) 11/16/21 17:23 RDW 13.6 % (12.1-15.1) 11/16/21 17:23 Plt Count 688 10^3/cmm (130-400) H 11/16/21 17:23 MPV 10.5 fL (7.4-10.4) H 11/16/21 17:23 Neut % (Auto) 62.0 % 11/16/21 17:23 Lymph % (Auto) 27.9 % 11/16/21 17:23 Maury % (Auto) 7.8 % 11/16/21 17:23 Eos % (Auto) 1.3 % 11/16/21 17:23 Baso % (Auto) 0.5 % 11/16/21 17:23 Neut # (Auto) 7.94 10^3/uL (1.8-7.7) H 11/16/21 17:23 Lymph # (Auto) 3.6 10^3/uL (0.8-4.8) 11/16/21 17:23 Maury # (Auto) 1.0 10^3/uL (0.2-0.9) H 11/16/21 17:23 Eos # (Auto) 0.2 10^3/uL (0.0-0.8) 11/16/21 17:23 Baso # (Auto) 0.1 10^3/uL (0.0-0.1) 11/16/21 17: Nucleated RBC % (auto) 0 % 11/16/21 17: Nucleated RBCs # 0.0 /100WBC 11/16/21 17:23 D-Dimer 2.14 ug/mIFEU (0-0.59) H 11/16/21 19:18 Sodium 137 mmol/L (136-145) 11/16/21 17:23 Potassium 4.1 mmol/L (3.5-5.1) 11/16/21 17:23 Chloride 97 mmol/L (98-107) L 11/16/21 17:23 Carbon Dioxide 23 mmol/L (22-29) 11/16/21 17:23 Anion Gap 21.1 (5-19) H 11/16/21 17:23 BUN 6 mg/dL (8-23) L 11/16/21 17:23 Creatinine 0.6 mg/dL (0.5-0.9) 11/16/21 17:23 GFR Calculation 102.0 mL/min (90-130) 11/16/21 17:23 Glucose 137 mg/dL (65-115) H 11/16/21 17:23 Calculated Osmolality 284 mOsm/kg (285-295) L 11/16/21 17:23 Calcium 9.5 mg/dL (8.5-10.5) 11/16/21 17:23 Troponin T Baseline 81 ng/L (0-10) H 11/16/21 17:23 Troponin T 120 Minute 265.5 ng/L (0-10) H 11/16/21 19:18 Delta Troponin T 184.5 ABS# (0-10) H* 11/16/21 19:18 EKG Data EKG 1: I personally reviewed and interpreted this EKG as follows: EKG interpretation date: 11/16/21 EKG interpretation time: 19:07 Interpretation: sinus tach hr [address] or t wave abnormalities qrs 81 qtc 390 Critical Care Time Critical Care Time: Critical Care Time: Yes Total Critical Care Time: 40 Attestation: The high probability of a clinically significant, sudden or life threatening deterioration of the patient's cv system(s) required my full and direct attention, intervention and personal management. The critical care time is as shown. This time is in addition to time spent performing any reported procedures but includes the following: [x] Data and vital sign review and interpretation [x] Patient assessment, examination and intervention [x] Documentation [x] Medication orders and management Discharge Plan Discharge Patient Disposition: Admitted As Inpatient Admit Provider: Sridhar Padilla Clinical Impression: Non-ST elevation IL (NSTEMI) Condition: Stable Coding Level of Care Code ED Assistant Offset Press Operator for Chg Fwd Exam Comprehensive
[2021-11-16 17:37] LABS: Basophils # 0.1 10^3/uL (0.0-0.1); Basophils % 0.5 %; Eosinophils # 0.2 10^3/uL (0.0-0.8); Eosinophils % 1.3 %; Hematocrit 32.8 % (37.0-47.0); Hemoglobin 10.5 g/dL (11.5-15.3); Lymphocytes # 3.6 10^3/uL (0.8-4.8); Lymphocytes % 27.9 %; Mean Corpuscular Hemoglobin 28.8 pg (28.0-34.0); Mean Corpuscular Volume 90.1 fl (81-99); Mean Platelet Volume 10.5 fL (7.4-10.4); Monocytes % 7.8 %; Neutrophils # 7.94 10^3/uL (1.8-7.7); Nucleated Red Blood Cells % 0 %; Platelet Count 688 10^3/cmm (130-400); Red Blood Count 3.64 10^6/uL (4.1-5.3); Red Cell Distribution Width 13.6 % (12.1-15.1); White Blood Count 12.8 10^3/uL (4.0-10.0)
[2021-11-16 18:07] LABS: Troponin(5th) Baseline 81 ng/L (0-10)
[2021-11-16] MEDS: nitroglycerin 1 gm/inch oint Pkt 0.5 INCH TOPICAL ×2 (18:17→23:58)
[2021-11-16 18:21] LABS: Blood Urea Nitrogen 6 mg/dL (8-23); Calcium 9.5 mg/dL (8.5-10.5); Carbon Dioxide 23 mmol/L (22-29); Chloride 97 mmol/L (98-107); Glucose 137 mg/dL (65-115); Osmolality Calculated 284 mOsm/kg (285-295); Sodium 137 mmol/L (136-145)
[2021-11-16 18:22] LABS: Anion Gap 21.1 (5-19); Potassium 4.1 mmol/L (3.5-5.1)
--- NOTE | 2021-11-16 18:45 | PC.NURSE ---
DR. BAXTER GAVE VERBAL ORDER TO REMOVE NITRO PASTE. PT CHEST PAIN 0/10
--- NOTE | 2021-11-16 19:06 | ECG_ITS ---
[facility] Test Date: 2021-11-16 Pat Name: Rylee Holder Department: Room: Gender: Female P D Driver: : 1960 Requested By: Minna Powell Order Number: [id number] Elayne MD: Howard Pires M.D. Measurements Intervals [place] Rate: 102 P: 75 RI: 184 QRS: 73 QRSD: 81 T: -15 QT: 331 QTc: 432 Interpretive Statements SINUS TACHYCARDIA NONSPECIFIC T-WAVE ABNORMALITY Compared to ECG 11/16/2021 17:09:41 T-wave abnormality now present Sinus rhythm no longer present ST (T wave) deviation no longer present Electronically Signed On 11-16-2021 20:43:39 CDT by Howard Pires M.D. [id number]
[2021-11-16 19:55] LABS: D Dimer 2.14 ug/mIFEU (0-0.59); Troponin 5 2HR Delta 184.5 ABS# (0-10)
[2021-11-16 19:56] LABS: Troponin 5 2HR 265.5 ng/L (0-10)
--- NOTE | 2021-11-16 20:01 | CTR_ITS ---
PROCEDURE INFORMATION: Exam: CTA Chest With Contrast Exam date and time: 11/16/2021 8:14 PM Age: 61 years old Clinical indication: Pain and abnormal findings; Abnormal diagnostic tests; Elevated d-dimer; Chest pressure; Prior surgery; Surgery date: <1 month; Surgery type: Lumbar fusion 3 weeks ago. Gb. Patient HX: Onset of chest pain today. Elevated d dimer. Had lumbar fusion surgery three weeks ago. ; Additional info: Cp TECHNIQUE: Imaging protocol: Computed tomographic angiography of the chest with contrast. 3D rendering (Not supervised by radiologist): MIP and/or 3D reconstructed images were created by the technologist. Radiation optimization: All CT scans at this facility use at least one of these dose optimization techniques: automated exposure control; mA and/or kV adjustment per patient size (includes targeted exams where dose is matched to clinical indication); or iterative reconstruction. Contrast material: OMNI 350; Contrast volume: 71 ml; Contrast route: INTRAVENOUS (IV); COMPARISON: CT angio chest abdomen pelvis 08/01/2019 12:23 PM RADIATION DOSE METRICS: Total DLP (mGy-cm): 281.51 FINDINGS: Pulmonary arteries: Normal. No pulmonary emboli. Aorta: No aortic aneurysm. No aortic dissection. Lungs: Calcified granulomas noted in the right lower lobe. Similar heterogeneous diffuse ground-glass opacification throughout both lungs as seen on multiple prior exams. No focal consolidation. No masses. Pleural spaces: No pneumothorax. No pleural effusion. Heart: No cardiomegaly. No pericardial effusion. Lymph nodes: Partially calcified right hilar lymph nodes consistent with prior granulomatous disease. No enlarged lymph nodes. Bones/joints: No acute fracture. Soft tissues: Unremarkable. CT/CT angio chest PE protcl [id number] IMPRESSION: Negative for pulmonary embolism. No acute findings.
[2021-11-16] MEDS: diphenhydrAMINE 50 mg/mL SDV 1mL IVP (20:10)
[2021-11-16] MEDS: iohexol 350 mg/mL 100 mL Btl IV (20:21)
[2021-11-16] MEDS: enoxaparin 60 mg/0.6 mL Syringe SUBCUT (20:24)
--- NOTE | 2021-11-16 20:58 | USCV_ITS ---
Rylee Holder Age: 61 Gender: F : 1960 Exam Date: 11/16/2021 21:10 Ordering Phys: Crystal Phillips MD Technologist: MICHAEL Exam Location: [facility] Indication: chest pain. No history of cardiac intervention per patient. BP: 115 / 90 HR: 100 Rhythm: Sinus Technical Quality: Adequate MEASUREMENTS (Male / Female) Normal Values 2D ECHO LV Diastolic Diameter PLAX 4.3 cm 4.2 - 5.9 / 3.9 - 5.3 cm LV Systolic Diameter PLAX 3.0 cm IVS Diastolic Thickness 1.1 cm 0.6 - 1.0 / 0.6 - 0.9 cm IVS Systolic Thickness 1.4 cm LVPW Diastolic Thickness 1.1 cm 0.6 - 1.0 / 0.6 - 0.9 cm LVPW Systolic Thickness 1.3 cm LVOT Diameter 1.9 cm LV Ejection Fraction 2D Teich 57.0 % LV Ejection Fraction MOD 2C 55.4 % LV Ejection Fraction 2C AL 56.4 % LA Diameter 3.0 cm LA Width 3.4 cm LA Height 4.7 cm RA Width 3.3 cm RA Height 3.6 cm Aorta at Sinotubular Diameter 2.5 cm M-MODE Aortic Annulus Diameter 2.4 cm LA Ao Ratio MM 1.2 MV E Point Septal Separation 0.3 cm DOPPLER AV Peak Velocity 106.0 cm/s LVOT Peak Velocity 79.0 cm/s AV Area Cont Eq vti 2.1 cm squared AV Area Cont Eq pk 2.1 cm squared MV Area PHT 4.1 cm squared Mitral E to A Ratio 0.8 MV E' Velocity 42.0 cm/s Mitral E to MV E' Ratio 9.4 Mitral E to LV E' Lateral Ratio 9.1 Mitral E to LV E' Septal Ratio 9.8 TR Peak Velocity 249.0 cm/s TR Peak Gradient 24.8 mmHg TV Peak E Velocity 54.0 cm/s Right Atrial Pressure 5.0 mmHg Pulmonary Artery Systolic Pressu 29.8 mmHg PV Peak Velocity 111.0 cm/s RV Acceleration Time 0.1 s RV Ejection Time 0.3 s RV AcT/ET 0.3 FINDINGS Left Ventricle Normal left ventricular size with ystolic function, EF 53%. Mild hypokinesia of the basal and mid inferior wall segments Right Ventricle The right ventricle is normal in size and function. Right Atrium The right atrium is normal in size. Left Atrium The left atrium is normal in size. Mitral Valve Thickened mitral valve. Mild mitral annular calcification. Mild mitral valve regurgitation. Aortic Valve Thickened aortic valve. Tricuspid Valve No gross abnormalities noted Pulmonic Valve Trace pulmonary valve regurgitation. Pericardium Normal pericardium without effusion. Aorta Normal ascending aorta dimension. IVC Normal inferior vena cava. CONCLUSIONS Normal LV size with a borderline low ejection fraction of 53%. Wall motion abnormality as mentioned above. Thickened mitral valve. Mild mitral annular calcification. Mild mitral valve regurgitation. Thickened aortic valve. Trace pulmonary valve regurgitation. There is no pericardial effusion. There are no intracardiac masses. No similar previous studies are available for comparison Dr Howard Pires MD [facility] (Electronically Signed) Final Date: 16 November 2021 23:11 S
--- NOTE | 2021-11-16 21:33 | PM.HP ---
Providers/Chief Complaint Primary Care Provider: Tramaine Elias MD Chief Complaint: cp History of Present Illness Rylee Holder is a 61 year old female with past medical history of hypertension, COPD, lumbar back pain with radiculopathy status post ?L5/S1 Interbody fusion came in today with chief complaint of substernal chest pain sharp 10 out of 10 in severity radiating to back started this morning, and since then got progressively worsened, she called her primary care physician who advised her to take sublingual nitro and go to the ER. She has denied any shortness of breath, palpitation nausea vomiting, diaphoresis, fever cough. Unfortunately patient is a longtime chronic smoker, she has been smoking close to 45 years, has been heavy smoker, currently she smokes about 3 packs a day, she denied any alcohol or drug use. Upon arrival in the ER she was worked up for above-mentioned complaint: Pertinent imaging studies: CT angio chest PE protcl: No pulmonary emboli. Aorta: No aortic aneurysm. No aortic dissection. EKG: Sinus rhythm with moderate ST depression, early repolarization changes in inferior leads. 2D echo: Normal LV size with a borderline low ejection fraction of 53%. ?Wall motion abnormality as mentioned above. ?Thickened mitral valve. Mild mitral annular calcification. Mild ?mitral valve regurgitation. Thickened aortic valve. ?Trace pulmonary valve regurgitation. ?There is no pericardial effusion. Pertinent labs: WBC 12.8 , H&H: 10.5/ 32 , PLT : 688 , sodium 137 potassium 4.1, BUN serum creatinine : 6/0.6 , Troponin trend: 81- 265 Patient received loading dose of aspirin and Plavix in the ER, as well as 1 dose of therapeutic anticoagulation with Lovenox. Review of Systems General: Reports: 10 or more systems reviewed and unremarkable except in HPI and below Const: Denies: fever(s), chills, body aches, change in appetite or diaphoresis Card: Denies: palpitations, edema, swelling of feet/ankles, dyspnea on exertion, orthopnea or leg pain with exertion Resp: Denies: dyspnea, productive cough, wheezing or pain on inspiration GI: Denies: abdominal pain, nausea, vomiting, diarrhea or constipation : Denies: flank pain Musc: Denies: back pain, extremity pain or extremity swelling Neuro: Denies: headache(s), difficulty walking or confusion Medications/Allergies Home Medications Medication Instructions Recorded Confirmed Last Taken Type diclofenac sodium 75 mg 75 mg PO BID 30 days #60 tabs 10/12/20 11/09/21 10/24/21 Rx tablet,delayed release lisinopril 20 mg tablet 20 mg PO DAILY #90 tabs 11/07/20 11/09/21 10/24/21 Rx citalopram 40 mg tablet 40 mg PO DAILY #90 tabs 01/09/21 11/09/21 10/24/21 Rx pregabalin 200 mg capsule (Lyrica) 200 mg PO BID 30 days #60 caps 02/20/21 11/09/21 10/24/21 Rx clonazepam 1 mg tablet 1 mg PO TID #90 tabs 03/13/21 11/09/21 10/24/21 Rx omeprazole 20 mg capsule,delayed 20 mg PO DAILY #90 caps 03/13/21 11/09/21 10/24/21 Rx release hydrocodone 10 mg-acetaminophen 1 tab PO Q8H PRN chronic pain 30 06/08/21 11/09/21 10/24/21 Rx 325 mg tablet days #90 tabs cyclobenzaprine 10 mg tablet 10 mg PO BEDTIME 10/20/21 11/09/21 10/24/21 History estradiol 1 mg tablet 1 mg PO DAILY 10/20/21 11/09/21 10/24/21 History tiotropium bromide 18 mcg capsule 1 cap inhalation DAILY 10/20/21 11/09/21 10/25/21 History with inhalation device (Spiriva with HandiHaler) Bone Growth Stimulator E0748 #1 ea 10/30/21 11/09/21 Unknown Rx hydrocodone 10 mg-acetaminophen 1 - 2 tab PO .q 4-6 PRN Postop 11/09/21 11/09/21 Unknown Rx 325 mg tablet pain 5 days #40 tabs Allergies Allergy/AdvReac Type Severity Reaction Status Date / Time acetaminophen [From Percocet] Allergy ITCHING Verified 11/09/21 10:47 codeine Allergy ITCH Verified 11/09/21 10:47 Iodinated Contrast Media Allergy RASH Verified 11/09/21 10:47 nalbuphine [From Nubain] Allergy ANAPHYLAXIS Verified 11/09/21 10:47 oxycodone [From Percocet] Allergy ITCHING Verified 11/09/21 10:47 penicillin V Allergy SWELLING Verified 11/09/21 10:47 PFSH Acute PFSH: Medical History (Updated 11/17/21 @ 00:04 by Howard Pires MD) Anxiety and depression COPD (chronic obstructive pulmonary disease) Hypercholesteremia Hypertension Hypoestrogenism Insomnia Lumbar back pain with radiculopathy affecting lower extremity Surgical History History of cholecystectomy History of hemorrhoidectomy History of total hysterectomy Social History Smoking and tobacco status: never smoked Second hand smoke exposure: No Smoking risk assessment/counseling performed?: No Alcohol intake: never Vitals/I&O/Wt Last Vital Signs Temp 98.7 F 11/16/21 17:09 Pulse 102 H 11/16/21 20:00 Resp 21 H 11/16/21 20:00 BP 115/90 11/16/21 20:00 Pulse Ox 95 11/16/21 20:00 O2 Del Method 11/16/21 17:13 Weight last 48 hrs Weight 52.163 kg Physical Exam Const: COMMON NORMALS: patient oriented x3 HENMT: COMMON NORMALS: normocephalic and atraumatic Resp: COMMON NORMALS: clear to auscultation bilaterally EFFORT & INSPECTION: Yes symmetric chest movement AUSCULTATION: clear to auscultation bilaterally Cardio: COMMON NORMALS: regular rate, regular rhythm, S1 normal heart sound present, S2 normal heart sound present, No gallops present (Cardio), No murmurs present (Cardio), No rub (Cardio) and Peripheral pulses 2+ throughout RATE: regular rate RHYTHM: regular rhythm HEART SOUNDS: S1 normal heart sound present and S2 normal heart sound present PERIPHERAL PULSES: Peripheral pulses 2+ throughout GI: COMMON NORMALS: Normal to inspection, nondistended, normoactive bowel sounds present, Soft to palpation, non-tender, No hepatosplenomegaly present and no masses AUSCULTATION: Yes normoactive bowel sounds PALPATION: Yes Soft to palpation and Yes No hepatosplenomegaly present RECTAL EXAM: deferred Neuro: COMMON NORMALS: patient oriented x3 Data : 11/17/21 03:20 11/17/21 03:20 A&P Assessment and plan (1) Non-ST elevation [place] (NSTEMI): (2) Hypertension: (3) COPD (chronic obstructive pulmonary disease): (4) Status post lumbar spinal fusion: Plan 61 year old female with past medical history of hypertension, COPD, lumbar back pain with radiculopathy status post ?L5/S1 Interbody fusion came in today with chief complaint of substernal chest pain sharp 10 out of 10 in severity radiating to back started this morning, and since then got progressively worsened. Assessment: NSTEMI Hypertension COPD Plan: 2D echo: Normal LV size with a borderline low ejection fraction of 53%.Wall motion abnormality as mentioned above. Thickened mitral valve. Mild mitral annular calcification. Mild ?mitral valve regurgitation. Thickened aortic valve. Trace pulmonary valve regurgitation. ?There is no pericardial effusion. Serial EKG monitoring. Telemetry monitoring Follow troponin trend Currently patient is on ACS protocol (on therapeutic anticoagulation, aspirin statin beta-leticia, sublingual nitro) Continue lisinopril 5 mg p.o. daily Cardiology has been consulted by ER. N.p.o. after midnight for possible cardiac cath in a.m. CODE STATUS: Full code DVT prophylaxis: On Lovenox Attestations Medical Necessity Statement*: Patient is to be in hospital for management of NSTEMI.Anticipated length of stay greater than 2 midnights. Time Spent in Patient Care: Greater than 35 minutes (>than 50% of time spent in counselling and/or direct pt care on unit). Coding Level of Care Code Acute Heat Treater Head for [facility] Fwd Exam Detailed Diagnoses Non-ST elevation [place] (NSTEMI) I21.4 Hypertension I10 COPD (chronic obstructive pulmonary disease) J44.9 Status post lumbar spinal fusion Z98.1
[2021-11-16] MEDS: clopidogrel 300 mg Tablet PO (21:50)
[2021-11-16] MEDS: sodium chloride 0.9% 1,000 ML 75 ML IV (21:54)
--- NOTE | 2021-11-16 22:57 | ECG_ITS ---
[facility] Test Date: 2021-11-16 Pat Name: Rylee Holder Department: Room: Gender: Female [employer] Department Manager: : 1960 Requested By: Minna Powell Order Number: [id number] Elayne MD: Howard Pires M.D. Measurements Intervals [place] Rate: 96 P: 73 SC: 170 QRS: 67 QRSD: 90 T: 0 QT: 347 QTc: 440 Interpretive Statements SINUS RHYTHM NONSPECIFIC T-WAVE ABNORMALITY Compared to ECG 11/16/2021 19:07:59 Sinus tachycardia no longer present T-wave abnormality still present Electronically Signed On 11-17-2021 19:11:20 CDT by Howard Pires M.D. [id number]
--- NOTE | 2021-11-16 23:20 | P.CONIM_ITS ---
Providers/Reason For Consult Consulting Physician/Specialty*: VITO Pires MD/cardiology Reason for Consult*: Patient is a chest pain and elevated troponin T Requesting Physician: Dr. Padilla Attending Physician: Sridhar Padilla MD Primary Care Provider: Tramaine Elias MD History of Present Illness History of Present Illness Rylee Holder is a 61 year old female with a history of hypertension, dyslipidemia and heavy smoking abuse, presented to the emergency room today with the complaints of a prolonged episode of chest pain since this morning. She was found to have elevated troponin T. Cardiology consult is requested for further cardiac evaluation and recommendations. Patient is a very poor historian. She had a recent lumbar surgery at the L5-S1 level. She has been have a lot of pain from the surgery. She woke up around 630 this morning with some pain in the epigastric area. She had some coffee later on. Apparently the pain started getting worse. According to her, she went to the bathroom with this pain. In the bathroom, she got very dizzy and called her for help. She came back to her bedroom and and remembers getting into her bed. As she woke up, she was having severe pain in the epigastric area. Her systolic blood pressure was in the 180s at that time. He called his primary care provider. Was advised to take 1 sublingual nitro. The blood pressure was repeated and was found to be around 138 systolic. She continued to have the chest pain. For that reason, an ambulance was called in. She had few more sublingual nitro in the ambulance. At the time she came to the emergency room, the pain was mostly gone. Her initial troponin I was elevated. The 2-hour troponin T showed a significant delta of 184. She is being admitted to hospital for further evaluation management. This patient has been having episodes of chest pain for a year or so. She had a stress test few years ago and was told to be unremarkable. She used to smoke a pack a day for 30 years or so. 3 years ago, her son got murdered. Since then she been smoking 2 to 3 pack a day. She is known to have COPD. She lost several of her family members in the recent years. She is under a lot of stress. Her mother and grandmother had coronary artery disease in their 60s and 70s. No history for any premature atherosclerotic heart disease in the family. She denies any alcohol abuse or any other substance abuse. Review of Systems Narrative: CONSTITUTIONAL: No fever or chills. [] EYES: No blurring of vision or other visual disturbances lately. ENT: No hoarseness of voice, auditory disturbances or sore throat. CARDIOVASCULAR: As mentioned above. RESPIRATORY: Has some baseline shortness of breath with activities. GASTROINTESTINAL: History of heartburns. GENITOURINARY: No dysuria or hematuria. INTEGUMENTARY: No skin rashes or history of skin cancer. NEURO: No transient ischemic attacks or amaurosis. PSYCHIATRIC: Has been under a lot of stress lately HEMATOLOGIC: No bleeding disorders or significant anemia. ENDOCRINE: No history of polyuria or polydipsia. MUSCULOSKELETAL: Recent lumbar surgery as mentioned above ; is under a lot of pain ALLERGY/IMMUNOLOGY: As mentioned above. Medications/Allergies Home Medications Medication Instructions Recorded Confirmed Last Taken Type diclofenac sodium 75 mg 75 mg PO BID 30 days #60 tabs 10/12/20 11/09/21 10/24/21 Rx tablet,delayed release lisinopril 20 mg tablet 20 mg PO DAILY #90 tabs 11/07/20 11/09/21 10/24/21 Rx citalopram 40 mg tablet 40 mg PO DAILY #90 tabs 01/09/21 11/09/21 10/24/21 Rx pregabalin 200 mg capsule (Lyrica) 200 mg PO BID 30 days #60 caps 02/20/2110/2010/24/21 Rx clonazepam 1 mg tablet 1 mg PO TID #90 tabs 03/13/21 11/09/21 10/24/21 Rx omeprazole 20 mg capsule,delayed 20 mg PO DAILY #90 caps 03/13/21 11/09/21 10/24/21 Rx release hydrocodone 10 mg-acetaminophen 1 tab PO Q8H PRN chronic pain 30 06/08/21 11/09/21 10/24/21 Rx 325 mg tablet days #90 tabs cyclobenzaprine 10 mg tablet 10 mg PO BEDTIME 10/20/21 11/09/21 10/24/21 History estradiol 1 mg tablet 1 mg PO DAILY 10/20/21 11/09/21 10/24/21 History tiotropium bromide 18 mcg capsule 1 cap inhalation DAILY 10/20/21 11/09/21 10/25/21 History with inhalation device (Spiriva with HandiHaler) Bone Growth Stimulator E0748 #1 ea 10/30/21 11/09/21 Unknown Rx hydrocodone 10 mg-acetaminophen 1 - 2 tab PO .q 4-6 PRN Postop 11/09/21 11/09/21 Unknown Rx 325 mg tablet pain 5 days #40 tabs Allergies Allergy/AdvReac Type Severity Reaction Status Date / Time acetaminophen [From Percocet] Allergy ITCHING Verified 11/09/21 10:47 codeine Allergy ITCH Verified 11/09/21 10:47 Iodinated Contrast Media Allergy RASH Verified 11/09/21 10:47 nalbuphine [From Nubain] Allergy ANAPHYLAXIS Verified 11/09/21 10:47 oxycodone [From Percocet] Allergy ITCHING Verified 11/09/21 10:47 penicillin V Allergy SWELLING Verified 11/09/21 10:47 Current Medications Generic Name Dose Route Start Last Admin Trade Name Freq PRN Reason Stop Dose Admin Sodium Chloride 1,000 mls @ 75 mls/hr 11/16/21 21:30 11/16/21 21:54 Sodium Chloride 0.9% IV 75 mls/hr .[id number] [place] Administration PFSH Acute PFSH: Medical History (Updated 11/17/21 @ 00:04 by Howard Pires MD) Anxiety and depression COPD (chronic obstructive pulmonary disease) Hypercholesteremia Hypertension Hypoestrogenism Insomnia Lumbar back pain with radiculopathy affecting lower extremity Surgical History History of cholecystectomy History of hemorrhoidectomy History of total hysterectomy Social History Smoking and tobacco status: never smoked Second hand smoke exposure: No Smoking risk assessment/counseling performed?: No Alcohol intake: never Vitals/I&O/Wt Last Vital Signs Temp 98.7 F 11/16/21 17:09 Pulse 102 H 11/16/21 20:00 Resp 21 H 11/16/21 20:00 BP 115/90 11/16/21 20:00 Pulse Ox 95 11/16/21 20:00 O2 Del Method 11/16/21 17:13 Weight last 48 hrs Weight 115 lb Physical Exam Narrative: GENERAL: The patient is alert and oriented times three. Not in any acute distress. Extremely anxious HEENT: No significant pallor, icterus or lymphadenopathy.Oral cavity: There are no mucous membrane lesions. NECK: Trachea appears to be central. No masses noted. No JVD or thyromegaly appreciated. RESPIRATORY: Chest is symmetrical. No intercostals muscle retraction or any accessory muscle activation. There is no chest wall tenderness. Breath sounds are heard bilaterally. No rales or rhonchi heard. No evidence of any consolidation. BREASTS: Deferred. HEART: The heart sounds are normal. No S3 breath and S4 is present. No significant murmurs. No pericardial rub ABDOMEN: No vessel pulsations or distention. Has some moderate tenderness in the left subcostal region. According to the patient, this has been chronic for the last 3 years. No organomegaly appreciated. Bowel sounds are normally heard. : Deferred. RECTAL: Deferred. LYMPHATIC: No lymphadenopathy noted in the neck. EXTREMITIES: No edema or cyanosis. No clubbing. MUSCULOSKELETAL: No acute joint deformities or swelling SKIN: There are no significant rashes or ecchymosis NEUROPSYCHIATRIC: The patient is alert and oriented x3. Appears to be in a good mood. No tremors or rigidity noted. Data : 11/16/21 17:23 11/16/21 17:23 Other Labs: Laboratory Last Values WBC 12.8 10^3/uL (4.0-10.0) H 11/16/21 17: RBC 3.64 10^6/uL (4.1-5.3) L 11/16/21 17: Hgb 10.5 g/dL (11.5-15.3) L 11/16/21 17: Hct 32.8 % (37.0-47.0) L 11/16/21 17:23 MCV 90.1 fl (81-99) 11/16/21 17: MCH 28.8 pg (28.0-34.0) 11/16/21 17: MCHC 32.0 g/dL (30.0-36.0) 11/16/21 17: RDW 13.6 % (12.1-15.1) 11/16/21 17: Plt Count 688 10^3/cmm (130-400) H 11/16/21 17:23 MPV 10.5 fL (7.4-10.4) H 11/16/21 17:23 Neut % (Auto) 62.0 % 11/16/21 17:23 Lymph % (Auto) 27.9 % 11/16/21 17:23 [place] % (Auto) 7.8 % 11/16/21 17:23 Eos % (Auto) 1.3 % 11/16/21 17:23 Baso % (Auto) 0.5 % 11/16/21 17:23 Neut # (Auto) 7.94 10^3/uL (1.8-7.7) H 11/16/21 17:23 Lymph # (Auto) 3.6 10^3/uL (0.8-4.8) 11/16/21 17:23 [place] # (Auto) 1.0 10^3/uL (0.2-0.9) H 11/16/21 17:23 Eos # (Auto) 0.2 10^3/uL (0.0-0.8) 11/16/21 17:23 Baso # (Auto) 0.1 10^3/uL (0.0-0.1) 11/16/21 17:23 Nucleated RBC % (auto) 0 % 11/16/21 17: Nucleated RBCs # 0.0 /100WBC 11/16/21 17:23 D-Dimer 2.14 ug/mIFEU (0-0.59) H 11/16/21 19:18 Sodium 137 mmol/L (136-145) 11/16/21 17:23 Potassium 4.1 mmol/L (3.5-5.1) 11/16/21 17:23 Chloride 97 mmol/L (98-107) L 11/16/21 17:23 Carbon Dioxide 23 mmol/L (22-29) 11/16/21 17:23 Anion Gap 21.1 (5-19) H 11/16/21 17:23 BUN 6 mg/dL (8-23) L 11/16/21 17:23 Creatinine 0.6 mg/dL (0.5-0.9) 11/16/21 17:23 GFR Calculation 102.0 mL/min (90-130) 11/16/21 17:23 Glucose 137 mg/dL (65-115) H 11/16/21 17:23 Calculated Osmolality 284 mOsm/kg (285-295) L 11/16/21 17:23 Calcium 9.5 mg/dL (8.5-10.5) 11/16/21 17:23 Troponin T Baseline 81 ng/L (0-10) H 11/16/21 17:23 Troponin T 120 Minute 265.5 ng/L (0-10) H 11/16/21 19:18 Delta Troponin T 184.5 ABS# (0-10) H* 11/16/21 19:18 Echo: My impression: Normal LV size with a borderline low ejection fraction of 53%. ?Wall motion analysis revealing hypokinetic basal and mid inferior wall segments ?Thickened mitral valve. Mild mitral annular calcification. Mild ?mitral valve regurgitation. ? Thickened aortic valve. ?Trace pulmonary valve regurgitation. ?There is no pericardial effusion. ?There are no intracardiac masses. ?No similar previous studies are available for comparison EKG 1: My Interpretation: Normal sinus rhythm with a rate of 93 bpm. Features of evaluation for myocardial infarction. Some early repolarization changes in the inferior leads. EKG computer-generated impression: Chest X-Ray 11/16/21 17:06 IMPRESSION: No acute findings. Chest CTA 11/16/21 20:01 IMPRESSION: Negative for pulmonary embolism. No acute findings. EKG 2: My Interpretation: Sinus tachycardia with a rate of 102 bpm. Nonspecific T wave changes in the leads II, III and aVF. Features of old inferior wall myocardial infarction. EKG computer-generated impression: Chest X-Ray 11/16/21 17:06 IMPRESSION: No acute findings. Chest CTA 11/16/21 20:01 IMPRESSION: Negative for pulmonary embolism. No acute findings. EKG 3: My Interpretation: Rhythm with a rate of [address]-T changes in the inferior leads. EKG computer-generated impression: Chest X-Ray 11/16/21 17:06 IMPRESSION: No acute findings. Chest CTA 11/16/21 20:01 IMPRESSION: Negative for pulmonary embolism. No acute findings. A&P Assessment and plan (1) Non-ST elevation [place] (NSTEMI): Patient's symptoms are suggestive of unstable angina complicated with a non-ST elevation myocardial infarction. Hemodynamically she seems to be stable. Her echocardiogram and EKG are suggestive of ischemia in the RCA territory. I agree with the subcu Lovenox, aspirin, Plavix, beta-leticia and statin. Patient may benefit from a cardiac catheterization, to further evaluate her coronary status and decide on further management. She may be kept n.p.o. after midnight. She will be reevaluated in the morning and a decision will be made regarding the timing of angiogram. Patient had a CTA and the pulmonary embolism is ruled out. (2) COPD (chronic obstructive pulmonary disease): Patient is a heavy smoker. Advised strongly to quit smoking. (3) Hypertension: Currently normotensive. May continue on the current medications. (4) Hypercholesteremia: May be kept on the statin. Plan Based on the clinical progress, further recommendations will be made. Patient may begin Plavix 300 mg p.o. now. Thank you for the opportunity to evaluate this patient make these recommendations Consult Attestations Medical Necessity Statement: Patient requires continued hospital stay for close monitoring and further management Coding Level of Care Code Acute Plant Control Operator for Cailin Fwd History Expanded Problem Focused Exam Detailed Medical Decision Making High Complexity Diagnoses Non-ST elevation [place] (NSTEMI) I21.4 COPD (chronic obstructive pulmonary disease) J44.9 Hypertension I10 Hypercholesteremia E78.00
--- NOTE | 2021-11-16 23:30 | PC.NURSE ---
Dr Pires @ pt bedside in ER. Per verbal order, bp rechecked and 0.5in Nitro paste reapplied along with 0.9% NS 250ml bolus given. RBVO.
[2021-11-16 23:49] LABS: Troponin 5 6HR 568.6 ng/L (0-10); Troponin 5 6HR Delta 487.6 ng/L (0-12)
[2021-11-16] MEDS: sodium chloride 0.9% 250 ML 999 ML IV (23:59)
[2021-11-17] VITALS (11 sets, daily range): BP systolic 95–129; BP diastolic 58–91; PULSE 74–97; RESP 16–22; TEMP 36.7–36.9; O2SAT 95–100
[2021-11-17] MEDS: HYDROcodone-acetaminophen 5-325 mg Tablet 1 TAB PO ×3 (00:46→23:05)
[2021-11-17] MEDS: metoprolol tartrate 25 mg Tablet PO ×3 (00:46→19:47)
[2021-11-17 03:53] LABS: Basophils % 0.3 %; Hematocrit 30.4 % (37.0-47.0); Hemoglobin 9.8 g/dL (11.5-15.3); Lymphocytes # 1.9 10^3/uL (0.8-4.8); Lymphocytes % 26.1 %; Mean Corpuscular HGB Conc 32.2 g/dL (30.0-36.0); Mean Corpuscular Hemoglobin 28.7 pg (28.0-34.0); Mean Corpuscular Volume 89.1 fl (81-99); Mean Platelet Volume 10.7 fL (7.4-10.4); Monocytes # 0.2 10^3/uL (0.2-0.9); Neutrophils # 5.26 10^3/uL (1.8-7.7); Neutrophils % 71.3 %; Nucleated Red Blood Cells % 0 %; Platelet Count 642 10^3/cmm (130-400); Red Blood Count 3.41 10^6/uL (4.1-5.3); Red Cell Distribution Width 13.6 % (12.1-15.1); White Blood Count 7.4 10^3/uL (4.0-10.0)
[2021-11-17 04:05] LABS: INR 1.16 (0.8-1.2)
[2021-11-17 04:06] LABS: Partial Thromboplastin Time 41.5 SECONDS (23.9-36.7)
[2021-11-17 04:20] LABS: Estmated Average Glucose 105; Hemoglobin A1C 5.3 % (4.0-6.0)
[2021-11-17 04:25] LABS: Alanine Aminotransferase 44 U/L (0-33); Albumin Level 3.4 g/dL (3.5-5.2); Alkaline Phosphatase 439 U/L (35-105); Anion Gap 14.2 (5-19); Aspartate Amino Transferase 52 U/L (0-32); Blood Urea Nitrogen 6 mg/dL (8-23); Calcium 9.3 mg/dL (8.5-10.5); Carbon Dioxide 25 mmol/L (22-29); Chloride 100 mmol/L (98-107); Chol HDL Ratio 4.36 mg/dL (0.0-4.40); Cholesterol 109 mg/dL (0-200); Globulin 3.5 g/dL (1.3-4.6); Glomerular Filtration Rate 125.9 mL/min (90-130); Glucose 148 mg/dL (65-115); HDL Cholesterol 25 mg/dL (60-100); LDL Cholesterol Calculated 55 mg/dL (50-129); Magnesium 2.1 mg/dL (1.7-2.3); NT Pro B Type Natriuretic Pept 1587 pg/mL (0-125); Osmolality Calculated 280 mOsm/kg (285-295); Potassium 4.2 mmol/L (3.5-5.1); Sodium 135 mmol/L (136-145); Thyroid Stimulating Hormone 0.69 uIU/mL (0.27-4.20); Total Bilirubin 0.2 mg/dL (0.15-1.2); Total Protein 6.9 g/dL (6.6-8.7); Triglycerides 143 mg/dL (0-150)
[2021-11-17 06:16] LABS: Glucose Point of Care 139 mg/dL (70-110)
[2021-11-17] MEDS: citalopram 20 mg Tablet 40 MG PO (08:32)
[2021-11-17] MEDS: pantoprazole DR 40 mg Tablet PO (08:32)
[2021-11-17] MEDS: aspirin 81 mg EC Tablet PO (08:33)
[2021-11-17] MEDS: lisinopril 5 mg Tablet PO (08:33)
--- NOTE | 2021-11-17 10:05 | P.PN_ITS ---
Subjective Subjective: The patient is chest pain-free this morning. The troponin, 6-hour delta is 486. No shortness of breath. No fever, chills or cough. The vital signs are stable. Troponin T Baseline 81 ng/L (0-10) H 11/16/21 17:23 Troponin T 120 Minute 265.5 ng/L (0-10) H 11/16/21 19:18 Delta Troponin T 184.5 ABS# (0-10) H* 11/16/21 19:18 Troponin T Hi Sens 6Hr 568.6 ng/L (0-10) H 11/16/21 23:11 Troponin T Hi Sens 6Hr Delta 487.6 ng/L (0-12) H* 11/16/21 23:11 Medications: Medication Review Details: Current Medications Acetaminophen (Acetaminophen 325 Mg Tablet) 650 mg PO Q6H PRN PRN Reason: Mild/Mod Pain Or Temp >/= 101 Hydrocodone Bitart/Acetaminophen (Hydrocodone-Acetaminophen 5-325 Mg Tablet) 1 tab PO Q4H PRN PRN Reason: MODERATE PAIN Last Admin: 11/17/21 08:32 Dose: 1 tab Aspirin (Aspirin 81 Mg Ec Tablet) 81 mg PO DAILY [facility] Last Admin: 11/17/21 08:33 Dose: 81 mg Atorvastatin Calcium (Atorvastatin 40 Mg Tablet) 40 mg PO BEDTIME [place] Bisacodyl (Bisacodyl 5 Mg Tablet) 10 mg PO DAILY PRN; Protocol PRN Reason: Constipation (see protocol) Citalopram Hydrobromide (Citalopram 20 Mg Tablet) 40 mg PO DAILY [facility] Last Admin: 11/17/21 08:32 Dose: 40 mg Sodium Chloride (Sodium Chloride 0.9%) 1,000 mls @ 75 mls/hr IV .[id number] [facility] Last Admin: 11/16/21 21:54 Dose: 75 mls/hr Dextrose/Sodium Chloride (Dextrose 5%-Sod Chloride 0.45%) 1,000 mls @ 100 mls/hr IV .Q10H [facility] Lisinopril (Lisinopril 5 Mg Tablet) 5 mg PO DAILY [facility] Last Admin: 11/17/21 08:33 Dose: 5 mg Metoprolol Tartrate (Metoprolol Tartrate 25 Mg Tablet) 25 mg PO BID@0900,2100 [facility] Last Admin: 11/17/21 08:34 Dose: 25 mg Nitroglycerin (Nitroglycerin 0.4 Mg Sublingual Tablet) 0.4 mg SUBLINGUAL Q5M PRN PRN Reason: CHEST PAIN Ondansetron HCl (Ondansetron 2 Mg/Ml Sdv 2 Ml) 4 mg IVP Q8H PRN PRN Reason: vomiting, or N/V if npo Pantoprazole Sodium (Pantoprazole Dr 40 Mg Tablet) 40 mg PO DAILY [facility] Last Admin: 11/17/21 08:32 Dose: 40 mg Tiotropium [place] (Tiotropium 18 Mcg Mdi) 18 mcg INHALATION DAILY.RESPIRATORY [place] Last Admin: 11/17/21 08:26 Dose: 1 puff Vitals/I&O/Wt Last Vital Signs Temp 98.2 F 11/17/21 04:00 Pulse 80 11/17/21 07:55 Resp 16 11/17/21 07:55 BP 109/74 11/17/21 07:55 Pulse Ox 96 11/17/21 07:55 O2 Del Method 11/17/21 07:55 11/16/21 11/17/21 11/17/21 22:59 06:59 14:59 Intake Total 250 / 250 Balance 250 / 250 Weight last 48 hrs Weight 115 lb Physical Exam Narrative: GENERAL: The patient is alert and oriented times three. Not in any acute distress. Extremely anxious HEENT: No significant pallor, icterus or lymphadenopathy.Oral cavity: There are no mucous membrane lesions. NECK: Trachea appears to be central. No masses noted. No JVD or thyromegaly appreciated. RESPIRATORY: Chest is symmetrical. No intercostals muscle retraction or any accessory muscle activation. There is no chest wall tenderness. Breath sounds are heard bilaterally. No rales or rhonchi heard. No evidence of any consolidation. BREASTS: Deferred. HEART: The heart sounds are normal. No S3 breath and S4 is present. No significant murmurs. No pericardial rub ABDOMEN: No vessel pulsations or distention. Has some moderate tenderness in the left subcostal region. According to the patient, this has been chronic for the last 3 years. No organomegaly appreciated. Bowel sounds are normally heard. : Deferred. RECTAL: Deferred. LYMPHATIC: No lymphadenopathy noted in the neck. EXTREMITIES: No edema or cyanosis. No clubbing. MUSCULOSKELETAL: No acute joint deformities or swelling SKIN: There are no significant rashes or ecchymosis NEUROPSYCHIATRIC: The patient is alert and oriented x3. Appears to be in a good mood. No tremors or rigidity noted. Data : 11/17/21 03:20 11/17/21 03:20 Other Labs: Laboratory Last Values WBC 7.4 10^3/uL (4.0-10.0) 11/17/21 03:20 RBC 3.41 10^6/uL (4.1-5.3) L 11/17/21 03:20 Hgb 9.8 g/dL (11.5-15.3) L 11/17/21 03:20 Hct 30.4 % (37.0-47.0) L 11/17/21 03:20 MCV 89.1 fl (81-99) 11/17/21 03:20 MCH 28.7 pg (28.0-34.0) 11/17/21 03:20 MCHC 32.2 g/dL (30.0-36.0) 11/17/21 03:20 RDW 13.6 % (12.1-15.1) 11/17/21 03:20 Plt Count 642 10^3/cmm (130-400) H 11/17/21 03:20 MPV 10.7 fL (7.4-10.4) H 11/17/21 03:20 Neut % (Auto) 71.3 % 11/17/21 03:20 Lymph % (Auto) 26.1 % 11/17/21 03:20 [place] % (Auto) 2.0 % 11/17/21 03:20 Eos % (Auto) 0.0 % 11/17/21 03:20 Baso % (Auto) 0.3 % 11/17/21 03:20 Neut # (Auto) 5.26 10^3/uL (1.8-7.7) 11/17/21 03:20 Lymph # (Auto) 1.9 10^3/uL (0.8-4.8) 11/17/21 03:20 [place] # (Auto) 0.2 10^3/uL (0.2-0.9) 11/17/21 03:20 Eos # (Auto) 0.0 10^3/uL (0.0-0.8) 11/17/21 03:20 Baso # (Auto) 0.0 10^3/uL (0.0-0.1) 11/17/21 03:20 Nucleated RBC % (auto) 0 % 11/17/21 03:20 Nucleated RBCs # 0.0 /100WBC 11/17/21 03:20 PT 15.10 SECONDS (12.1-14.9) H 11/17/21 03:20 INR 1.16 (0.8-1.2) 11/17/21 03:20 APTT 41.5 SECONDS (23.9-36.7) H 11/17/21 03:20 D-Dimer 2.14 ug/mIFEU (0-0.59) H 11/16/21 19:18 Sodium 135 mmol/L (136-145) L 11/17/21 03:20 Potassium 4.2 mmol/L (3.5-5.1) 11/17/21 03:20 Chloride 100 mmol/L (98-107) 11/17/21 03:20 Carbon Dioxide 25 mmol/L (22-29) 11/17/21 03:20 Anion Gap 14.2 (5-19) 11/17/21 03:20 BUN 6 mg/dL (8-23) L 11/17/21 03:20 Creatinine 0.5 mg/dL (0.5-0.9) 11/17/21 03:20 GFR Calculation 125.9 mL/min (90-130) 11/17/21 03:20 Glucose 148 mg/dL (65-115) H 11/17/21 03:20 POC Glucose 139 mg/dL (70-110) H 11/17/21 06:03 Estimat Average Glucose 105 11/17/21 03:20 Hemoglobin A1c 5.3 % (4.0-6.0) 11/17/21 03:20 Calculated Osmolality 280 mOsm/kg (285-295) L 11/17/21 03:20 Calcium 9.3 mg/dL (8.5-10.5) 11/17/21 03:20 Magnesium 2.1 mg/dL (1.7-2.3) 11/17/21 03:20 Total Bilirubin 0.2 mg/dL (0.15-1.2) 11/17/21 03:20 AST 52 U/L (0-32) H 11/17/21 03:20 ALT 44 U/L (0-33) H 11/17/21 03:20 Alkaline Phosphatase 439 U/L (35-105) H 11/17/21 03:20 Troponin T Baseline 81 ng/L (0-10) H 11/16/21 17:23 Troponin T 120 Minute 265.5 ng/L (0-10) H 11/16/21 19:18 Delta Troponin T 184.5 ABS# (0-10) H* 11/16/21 19:18 Troponin T Hi Sens 6Hr 568.6 ng/L (0-10) H 11/16/21 23:11 Troponin T Hi Sens 6Hr Delta 487.6 ng/L (0-12) H* 11/16/21 23:11 NT-Pro-B Natriuret Pep 1587 pg/mL (0-125) H 11/17/21 03:20 Total Protein 6.9 g/dL (6.6-8.7) 11/17/21 03:20 Albumin 3.4 g/dL (3.5-5.2) L 11/17/21 03:20 Globulin 3.5 g/dL (1.3-4.6) 11/17/21 03:20 Triglycerides 143 mg/dL (0-150) 11/17/21 03:20 Cholesterol 109 mg/dL (0-200) 11/17/21 03:20 LDL Cholesterol, Calc 55 mg/dL (50-129) 11/17/21 03:20 HDL Cholesterol 25 mg/dL (60-100) L 11/17/21 03:20 LDL/HDL Ratio 2.20 RATIO (0.00-3.22) 11/17/21 03:20 Cholesterol/HDL Ratio 4.36 mg/dL (0.0-4.40) 11/17/21 03:20 TSH 0.69 uIU/mL (0.27-4.20) 11/17/21 03:20 A&P Assessment and plan (1) Non-ST elevation [place] (NSTEMI): Patient's symptoms are suggestive of unstable angina complicated with a non-ST elevation myocardial infarction. Hemodynamically she seems to be stable. Her e chocardiogram and EKG are suggestive of ischemia in the RCA territory. The patient may be continued on the current medications. Will start on p.o. Plavix 75 mg daily. We will do an EKG today to look for any new changes. Her rising troponin T is a concern. Hemodynamically she seems to be stable. (2) COPD (chronic obstructive pulmonary disease): Patient is a heavy smoker. Advised strongly to quit smoking. (3) Hypertension: Currently normotensive. May continue on the current medications. (4) Hypercholesteremia: May be kept on the statin. Plan For further evaluation of the patient's coronary status, she requires a cardiac catheterization. This was explained to the patient in detail. The risk of bleeding, hematoma, vascular injury, myocardial infarction, CVA, renal failure and other concomitant complications were explained in detail. Patient understood this well and consented to proceed. We may schedule this test for this afternoon. Patient angiogram findings, further management decisions will be made. Attestations Medical Necessity Statement*: Patient requires continued hospital stay for close monitoring and further management Coding Level of Care Code Acute Cattle Tester for inés Torres Diagnoses Non-ST elevation [place] (NSTEMI) I21.4 COPD (chronic obstructive pulmonary disease) J44.9 Hypertension I10 Hypercholesteremia E78.00
[2021-11-17] MEDS: nicotine 21 mg Patch 1 PATCH TRANSDERMA (10:49)
[2021-11-17] MEDS: clopidogrel 75 mg Tablet PO (10:50)
[2021-11-17] MEDS: dextrose 5%-sod chloride 0.45% 1,000 ML 100 ML IV (10:51)
[2021-11-17] MEDS: lidocaine 5% Patch 1 PATCH TOPICAL (10:53)
--- NOTE | 2021-11-17 10:56 | ECG_ITS ---
[facility] Test Date: 2021-11-17 Pat Name: Rylee Holder Department: Room: 276 Gender: Female Reinsurance Clerk: : 1960 Requested By: Howard Pires Order Number: [id number] Reading MD: Howard Pires M.D. Measurements Intervals [place] Rate: 69 P: 76 [place]: 172 QRS: 25 QRSD: 83 T: -40 QT: 417 QTc: 448 Interpretive Statements SINUS RHYTHM MODERATE T-WAVE ABNORMALITY, CONSIDER INFERIOR ISCHEMIA [-0.1+ mV T-WAVE IN II/aVF] Compared to ECG 11/16/2021 22:57:03 Possible ischemia now present T-wave abnormality still present Electronically Signed On 11-17-2021 19:12:08 CDT by Howard Pires M.D. [id number]
--- NOTE | 2021-11-17 12:01 | P.PN_ITS ---
Subjective Subjective: She is overall feeling somewhat anxious, recently has been anxious for the last 2 years due to disappearance of her son, has been smoking several packs a day. Having back pain persistent after lower back surgery several weeks ago, including some right leg symptoms for which has followed up with o rthopedics in office. Denies chest pain or pressure. No trouble breathing. Vitals/I&O/Wt Last Vital Signs Temp 98.2 F 11/17/21 04:00 Pulse 76 11/17/21 11:15 Resp 22 H 11/17/21 11:15 BP 102/58 11/17/21 11:15 Pulse Ox 97 11/17/21 11:15 O2 Del Method 11/17/21 11:15 11/16/21 11/17/21 11/17/21 22:59 06:59 14:59 Intake Total 250 / 250 973.75 / 973.75 Balance 250 / 250 973.75 / 973.75 Weight last 48 hrs Weight 52.163 kg Physical Exam Narrative: Family at bedside Const: COMMON NORMALS: patient oriented x3 and alert GENERAL APPEARANCE: cooperative ORIENTATION/CONSCIOUSNESS: Yes awake HENMT: COMMON NORMALS: oropharynx normal Neck/C-Spine: COMMON NORMALS: no JVD Resp: COMMON NORMALS: normal respiratory effort and clear to auscultation bilaterally AUSCULTATION: clear to auscultation bilaterally Cardio: COMMON NORMALS: no JVD, regular rhythm, S1 normal heart sound present, S2 normal heart sound present and No murmurs present (Cardio) RHYTHM: regular rhythm HEART SOUNDS: S1 normal heart sound present and S2 normal heart sound present GI: COMMON NORMALS: Normal to inspection, nondistended, normoactive bowel sounds present, Soft to palpation and non-tender PALPATION: Yes Soft to palpation Back/Pelvis: OTHER: Healing wound lower back, no surrounding erythema, no drainage Extremity: COMMON NORMALS: no joint enlargement and no pedal edema Neuro: COMMON NORMALS: patient oriented x3 and moves all extremities SENSORIUM/ORIENTATION: Yes alert Skin: COMMON NORMALS: no rashes or lesions noted GENERAL SKIN EXAM: no rashes or lesions noted Data : 11/17/21 03:20 11/17/21 03:20 A&P Assessment and plan (1) Non-ST elevation [place] (NSTEMI): Appreciate cardiology assessment and recommendations. Plan for coronary angiogram today continue cardiac medications including anticoagulation. (2) Hypertension: (3) COPD (chronic obstructive pulmonary disease): (4) Status post lumbar spinal fusion: Add lidocaine patch, continue symptom management. Follow-up with orthopedics. Plan Smoking addiction: Discussed smoking cessation for 4 minutes, she has been under a lot of stress recently due to missing family member. Has been smoking several packs per day. Does not feel she will be able to quit currently. Continue to encourage cessation. Provide nicotine replacement. Attestations Medical Necessity Statement*: Continue admission for assessment and management of NSTEMI. Coding Level of Care Code Acute Vocational Evaluator for [facility] Sauld Diagnoses Non-ST elevation [place] (NSTEMI) I21.4 Hypertension I10 COPD (chronic obstructive pulmonary disease) J44.9 Status post lumbar spinal fusion Z98.1
--- NOTE | 2021-11-17 12:15 | XACV_ITS ---
Exam Room: [facility] Ht: 157 cm Wt: 52 kg BSA: 1.51 m2 Gender: Female : 1960 Exam Priority: Routine Procedure(s): Procedure Description: Diagnostic procedure Procedure Description: PCI procedure Procedure Description: Left Heart Catheterization Procedure Description: Coronary IVUS Procedure Description: Drug Eluting Coronary Stent Procedure Description: PTCA Procedure Description: Miscellaneous Procedure Description: ACT Procedure Description: Coronary Angiography Pranay RICK; Diagnostic Cath Status: Urgent Diagnostic Findings * The left main is a medium caliber vessel with no significant stenotic lesions. * The left anterior descending artery is a medium caliber vessel which appears to taper off to his LV apex. The proximal LAD was found to have mild diffuse narrowing of around 20%. The mid and the distal LAD was found to have minimal intimal irregularities. * The intermedius artery is a relatively small caliber vessel with a proximal tubular narrowing from 50%. * The left circumflex artery is a medium caliber vessel which gives off an atrial branch proximally. Right after this, there was a 50% eccentric narrowing. The mid circumflex artery was found to have around 80% segmental narrowing. No other significant stenotic lesions were noted. * The right coronary coronary artery is a medium caliber dominant vessel which was found to have a high-grade stenosis of around 90% just before the first RV branch.Right after the RV branch, there was around 40% tubular narrowing in the artery. The distal artery was found to have minimal intimal irregularities. PCI Status: Urgent PCI Indication: NSTE - ACS Interventional Findings * PROCEDURE DETAIL: We engaged RCA with JR4 guide catheter. Heparin was administered to maintain ACT above 250 S. 0.014 run-through guidewire was used to cross mid RCA stenosis and was put in distal vessel. We predilated stenosis with 2.5 x 15 mm semicompliant balloon. We used IVUS to size the vessel. Distal diameter was found to be 3.0 mm. This was followed by placement of 3.0 x 38 mm resolute Chavo drug-eluting stent. Proximal section of the vessel was postdilated with 3.25X8 mm NC balloon. At this time final angiogram was performed that showed excellent stent expansion, no residual stenosis and GENI-3 flow. Guidewire and guide catheter were removed. We then turned our attention to the left circumflex artery stenosis. We used XB 3.0 guide catheter to engage left main artery. Images taken by guide catheter showed more significant proximal left circumflex artery stenosis which was about 70%. We predilated mid left circumflex artery stenosis first with 2.5 x 15 mm semi-compliant balloon. Using same balloon we predilated proximal part of the vessel as well. We then placed 2.5 x 15 mm resolute Chavo drug-eluting stent in mid circumflex artery. Following this we placed 2.5 x 15 mm resolute Chavo drug-eluting stent in proximal left circumflex artery. At this time final angiogram was performed that showed excellent stent expansion, no residual stenosis and GENI-3 flow. Guidewire and guide catheter were removed. Patient left the Features Reporter in a stable condition.. * Mid Right Coronary Artery: 90 % stenosis treated with a AB TREK 2.50X15 RX BALLOON, DAVE R CHAVO 3.0X38 MIRTHA, and DAVE HOLDER EUPHORA RX [id number] BALLOON. 0% residual stenosis, GENI: 3 flow. * Mid Circumflex: 80% stenosis treated with a AB TREK 2.50X15 RX BALLOON, and MDT R CHAVO 2.5X15 MIRTHA. 0% residual stenosis, GENI: 3 flow. * Proximal Circumflex: 70% stenosis treated with a MDT R CHAVO 2.5X15 MIRTHA. 0% residual stenosis, GENI: 3 flow. Conclusions 1. 61-year-old white female with history of hypertension, dyslipidemia, heavy smoking abuse, presented with features of unstable angina complicated with non-ST elevation myocardial infarction. She had an echocardiogram done which revealed diffuse hypokinesia of the basal in the mid segments of the inferior wall. The EKG showed nonspecific ST-T changes in the inferior leads. In view of the patient's presenting symptoms and the other abnormal objective findings, in order to further evaluate her coronary status, a cardiac catheterization was recommended. Patient underwent left heart catheterization with left and right coronary angiogram today. The findings are as follows. 2. #1. No significant stenosis in the left main and the left and descending artery. #2. 50% eccentric lesion in the proximal circumflex and around 80% segmental lesion in the mid circumflex artery. #3. 90% stenosis in the proximal RCA. #4. Mild disease in the other vessels. #6 LVEDP of 26 mmHg. Based on the angiogram findings, it was thought to be appropriate to consider PCI of the circumflex and the right coronary artery lesions. I have reviewed and discussed the cardiac catheterization data with the Dr. Braun. Dr. Braun concurred with this plan and took over further management of this patient at this point. 3. Successful revascularization of proximal to mid RCA with MIRTHA x1. Successful revascularization of proximal left circumflex artery with MIRTHA x1 and of mid LCx with MIRTHA x1. 4. Mid Right Coronary Artery was treated with a Balloon, Drug Eluting Stent, and Balloon. 5. Proximal Circumflex was treated with a Drug Eluting Stent. 6. Mid Circumflex was treated with a Balloon, and Drug Eluting Stent. Recommendations * Dual antiplatelet therapy with aspirin and Plavix for at least 1 year. * High intensity statin therapy. * Smoking cessation strongly advised. * Outpatient cardiology follow-up in 2 to 4 weeks. Interventional RX Recommendation: PCI w/o planned CABG Diagnostic RX Recommendation: PCI w/o planned CABG LV EDP: 26 mmHg Left Ventriculography Findings: * The LV gram was not performed because of the limitations on the dye usage. The LVEDP was 26 mmHg. Pressures Phase:Rest AO : 95 / 71 ( 82 ) @ 2:26:00 PM 116 / 65 ( 88 ) @ 2:33:00 PM 115 / 65 ( 88 ) @ 2:33:00 PM 102 / 48 ( 74 ) @ 2:54:00 PM 115 / 74 ( 91 ) @ 3:07:00 PM 117 / 78 ( 96 ) @ 3:13:00 PM LV : 117 / 6 / 28 @ 2:33:00 PM 117 / 6 / 26 @ 2:33:00 PM Valves Phase:DefaultPhase AV : 6.0 @ 2:26:42 PM AV Mean Gradient: 8.0 @ 2:26:42 PM Clinical Evaluation EBL: 5mL-10mL Procedural Details Procedure Consent Obtained. Pre-Procedure Time Out. Identified patient by full name and date of as verbalized by the patient/guarantor. Does the consent match the physician's order: Yes. Accurate & Complete Informed Consent: Yes. Inpatient/Outpatient History & Physical on Chart: Yes. If H&P is completed, is and addenduem needed: N/A; If yes, is the addendum complete: N/A. Visualize and Verify Site with Patient/Guarantor: N/A. Relevant Radiology Images available: N/A. Pre-op teaching completed and patient verbalized understanding. The risks, benefits, and alternatives of sedation and/or procedure were discussed by physician. The patient agrees to continue. Procedure started. [facility] Clinical Fraility Score: 3: Managing Well. Features Reporter Indications: New Onset Angina. Chest Pain Symptom Assessment: Typical Angina Symptoms. Correct patient, site and procedure confirmed by cath team. Current diagnosis: NSTEMI. PERRLA. Strong, equal hand centrifugal spinner bilaterally. Lungs clear x 5 lobes. IV Site on Arrival: 20 gauge in the right anticubital. IV Fluids: 0.9% NaCl at KVO. 0 mL infused prior to salvage laborer. Pre Procedural Pulses: right radial was 2+. Pre Procedural Pulses: bilateral dorsalis pedis was 2+. Oxygen started at 2liters/min via nasal canula. right groin was prepped with chloroprep then draped in the usual sterile fashion. right radial was prepped with chloroprep then draped in the usual sterile fashion. Baseline sample Acquired. HR: 92 BPM. Physician notified. Physician arrived. Admit Source: In Patient. Physician scrubbed in. Immediate Pre-Procedure Time Out. Correct Patient: Yes; Correct Procedure: Yes; Correct Site: Yes; Correct Patient Position: Yes; Correct Supplies: Yes; Dried Flammable Prep: Yes; Blood Products Available: N/A;. Lidocaine 1% infiltrated to the right radial. Arterial access obtained. A 5 monegasque Abdulkadir catheter in over wire. Multiple views taken of left coronary artery. Dr. Braun notified to come review films. Catheter redirected to the RCA. Multiple views taken of right coronary artery. EDP Sample taken: LV 117/6,28; HR: 78 BPM; SpO2: 100%. Pullback taken: LV 117/6,26; AO 116/65(88); Mean: 8mmHg, Peak to Peak: 6mmHg, SEP: 22sec/min; HR: 78 BPM; SpO2: 100%. Catheter removed over the exchange wire. Dr. Braun scrubbed in to perform intervention. Patient's family updated. 6 monegasque JR 4 guide catheter was inserted over the wire. Runthrough guidewire was advanced through the guide catheter to lesion in the mid RCA. IVUS catheter inserted into Mid RCA. IVUS measurements obtained. Balloon inserted to lesion in the mid RCA. IVUS catheter removed. Inflation number : 1 A AB TREK 2.50X15 RX BALLOON was prepped and advanced across the Mid RCA , then inflated to 12 GUY for 0:16 seconds. Inflation number: 2 The AB TREK 2.50X15 RX BALLOON was reinflated across the Mid RCA, to 12 GUY for 0:12 seconds. Balloon out. Stent inserted to lesion in the mid RCA. Inflation Number : 3 A MDT R CHAVO 3.0X38 MIRTHA -Lot Number# [id number] Exp 06/25/24 was prepped and advanced across the Mid RCA. The stent was deployed at 13 GUY for 0:20 seconds. Stent balloon out over wire. Balloon inserted to lesion in the mid RCA. Inflation number : 4 A MDT NC EUPHORA RX [id number] BALLOON was prepped and advanced across the Mid RCA , then inflated to 12 GUY for 0:12 seconds. Inflation number: 5 The MDT NC EUPHORA RX [id number] BALLOON was reinflated across the Mid RCA, to 12 GUY for 0:10 seconds. Inflation number: 6 The MDT NC EUPHORA RX [id number] BALLOON was reinflated across the Mid RCA, to 14 GUY for 0:11 seconds. Results checked. Balloon out. Wire out. Results checked. Guide catheter out. 6 monegasque XB 3 guide catheter was inserted over the wire. ACT drawn. Results 386 seconds. Therapeutic limits - pre-heparin administration 90-150 seconds and monitoring heparin during a vascular procedure >250 seconds. ACT drawn. Results seconds. Therapeutic limits - pre-heparin administration 90-150 seconds and monitoring heparin during a vascular procedure >250 seconds. Runthrough repositioned to mid Circ. Balloon inserted to lesion in the mid Circ. Inflation number: 1 The AB TREK 2.50X15 RX BALLOON was reinflated across the Mid CX, to 12 GUY for 0:16 seconds. Inflation number: 2 The AB TREK 2.50X15 RX BALLOON was reinflated across the Mid CX, to 12 GUY for 0:11 seconds. Balloon out. Stent inserted to lesion in the mid Circ. Inflation Number : 3 A MDT R CHAVO 2.5X15 MIRTHA -Lot Number# [id number] Exp 06/21/2023 was prepped and advanced across the Mid CX. The stent was deployed at 12 GUY for 0:15 seconds. Stent balloon out over wire. Results checked. Stent inserted to lesion in the prox Circ. Inflation Number : 1 A MDT R CHAVO 2.5X15 MIRTHA -Lot Number# [id number] Exp 08/22/2023 was prepped and advanced across the Prox CX. The stent was deployed at 12 GUY for 0:17 seconds. Stent balloon out over wire. Results checked. ACT drawn. Results seconds. Therapeutic limits - pre-heparin administration 90-150 seconds and monitoring heparin during a vascular procedure >250 seconds. Guide catheter out. A TR Band was successful obtaining hemostatsis at the Right Radial artery insertion site. Post Procedure: Pulses reassessed and unchanged. PERRLA. Strong, equal hand centrifugal spinner bilaterally. No VTE prophylaxis required. Medication's Wasted: Nitro = 49.9 mg. Total IV fluids: 419 mL. PCI Indication: NSTE. Post-op diagnosis: Obstructive CAD. Complications: none. Medication's Wasted: Other = Solumedrol 80 mg. Estimated blood loss: 5mL-10mL. Responsiveness - Normal response to verbal stimuli; alert and oriented, PERRLA. Airway - Unaffected, no intervention required; spontaneous ventilation. Circulation: W/N/L, pulses unchanged. Nausea/Vomiting: No. Procedure completed. Patient transferred by wheelchair to [facility]. Vital chart was stopped. Access Site Site: Right Radial artery Sheath Size: 6 Fr Hemostasis Method: TR Band Hemostasis Success: Successful Procedure Medications Start: 1:16 PM Stop: 1:16 PM Medication: Solu-Medrol (methylprednisolone) Amount: 40 mg Route: I.V. Start: 1:16 PM Stop: 1:16 PM Medication: Fentanyl Amount: 50 mcg Route: I.V. Start: 1:16 PM Stop: 1:16 PM Medication: Versed Amount: 1 mg Route: I.V. Start: 1:16 PM Stop: 1:16 PM Medication: Versed Amount: 1 mg Route: I.V. Start: 1:18 PM Stop: 1:18 PM Medication: Fentanyl Amount: 25 mcg Route: I.V. Start: 1:19 PM Stop: 1:19 PM Medication: 0.9% Saline Amount: 75 ml/hr Route: I.V. drip Start: 1:19 PM Stop: 1:19 PM Medication: 0.9% Saline Amount: 250 ml Route: I.V. bolus Start: 1:21 PM Stop: 1:21 PM Medication: Versed Amount: 1 mg Route: I.V. Start: 1:21 PM Stop: 1:21 PM Medication: Verapamil Amount: 5 mg Route: I.A. Start: 1:26 PM Stop: 1:26 PM Medication: Heparin Amount: 5000 units Route: I.V. Start: 1:26 PM Stop: 1:26 PM Medication: Versed Amount: 1 mg Route: I.V. Start: 1:33 PM Stop: 1:33 PM Medication: Fentanyl Amount: 25 mcg Route: I.V. Start: 1:41 PM Stop: 1:41 PM Medication: Nitrogylcerin Amount: 100 mcg Route: I.A. Start: 1:46 PM Stop: 1:46 PM Medication: Heparin Amount: 1000 units Route: I.V. Start: 2:13 PM Stop: 2:13 PM Medication: Versed Amount: 2 mg Route: I.V. I, the attending physician, have reviewed and verified all procedure medications. Yes, all medications given per verbal order History/Risk Factors Hypertension: Yes Dyslipidemia: No Peripheral Arterial Disease (PAD): No Myocardial Infarction (NM): No Obesity: No Renal Disease: No Tobacco Use: Never Prior Interventions PCI: No CABG: No Valve Surgery: No Report Signatures Interventional Workflow Finalized by Porter Braun MD on 11/19/2021 12:42 AM Diagnostic Workflow Finalized by Dr Howard Pires MD [facility] on 11/17/2021 04:02 PM
--- NOTE | 2021-11-17 19:23 | PC.NURSE ---
Patient requesting something to help with sleep tonight. Spoke with Dr Jo and received telephone order for Restoril 15mg PRN at bedtime.
[2021-11-17] MEDS: temazepam 15 mg Capsule PO (19:47)
[2021-11-17] MEDS: atorvastatin 40 mg Tablet PO (19:48)
[2021-11-17] MEDS: nicotine 4 mg lozenge MUCOUS MEM (20:27)
[2021-11-18] VITALS (7 sets, daily range): BP systolic 98–124; BP diastolic 65–68; PULSE 79–96; RESP 16–21; TEMP 36.7–36.9; O2SAT 96–99
--- NOTE | 2021-11-18 02:34 | PC.NURSE ---
Patient had requested something else to help with sleep. Informed Dr Padilla and he placed order for benadryl 25mg PO once. Patient stated, I can't take that because it will make me more hyper. Patient is pleasant at this time and stated, she would just get by until she gets home.
[2021-11-18 05:14] LABS: Basophils % 0.3 %; Eosinophils % 0.1 %; Hematocrit 29.9 % (37.0-47.0); Hemoglobin 9.4 g/dL (11.5-15.3); Lymphocytes % 31.1 %; Mean Corpuscular HGB Conc 31.4 g/dL (30.0-36.0); Mean Corpuscular Hemoglobin 28.8 pg (28.0-34.0); Mean Corpuscular Volume 91.7 fl (81-99); Monocytes # 1.6 10^3/uL (0.2-0.9); Neutrophils # 9.29 10^3/uL (1.8-7.7); Neutrophils % 58.1 %; Nucleated Red Blood Cells % 0 %; Platelet Count 625 10^3/cmm (130-400); Red Blood Count 3.26 10^6/uL (4.1-5.3); Red Cell Distribution Width 13.8 % (12.1-15.1)
[2021-11-18] MEDS: HYDROcodone-acetaminophen 5-325 mg Tablet 1 TAB PO (05:20)
[2021-11-18 05:26] LABS: Alanine Aminotransferase 37 U/L (0-33); Albumin Level 3.3 g/dL (3.5-5.2); Alkaline Phosphatase 364 U/L (35-105); Blood Urea Nitrogen 9 mg/dL (8-23); Calcium 9.3 mg/dL (8.5-10.5); Carbon Dioxide 23 mmol/L (22-29); Chloride 101 mmol/L (98-107); Globulin 3.4 g/dL (1.3-4.6); Glomerular Filtration Rate 125.9 mL/min (90-130); Glucose 101 mg/dL (65-115); Osmolality Calculated 285 mOsm/kg (285-295); Sodium 138 mmol/L (136-145); Total Bilirubin 0.2 mg/dL (0.15-1.2); Total Protein 6.7 g/dL (6.6-8.7)
[2021-11-18 05:28] LABS: Anion Gap 17.7 (5-19); Aspartate Amino Transferase 71 U/L (0-32); Potassium 3.7 mmol/L (3.5-5.1)
[2021-11-18] MEDS: nicotine 21 mg Patch 1 PATCH TRANSDERMA (08:21)
[2021-11-18] MEDS: clopidogrel 75 mg Tablet PO (08:21)
[2021-11-18] MEDS: metoprolol tartrate 25 mg Tablet PO (08:21)
[2021-11-18] MEDS: lisinopril 5 mg Tablet PO (08:22)
[2021-11-18] MEDS: aspirin 81 mg EC Tablet PO (08:22)
[2021-11-18] MEDS: citalopram 20 mg Tablet 40 MG PO (08:22)
[2021-11-18] MEDS: pantoprazole DR 40 mg Tablet PO (08:22)
[2021-11-18] MEDS: lidocaine 5% Patch 1 PATCH TOPICAL (08:24)
--- NOTE | 2021-11-18 08:33 | P.PN_ITS ---
Subjective Subjective: Patient is stable. No chest pain. Says has not been able to sleep well recently. Has back pain from recent surgery Vitals/I&O/Wt Last Vital Signs Temp 98.2 F 11/18/21 07:21 Pulse 89 11/18/21 08:04 Resp 16 11/18/21 08:04 BP 113/68 11/18/21 07:21 Pulse Ox 98 11/18/21 08:04 O2 Del Method 11/18/21 08:04 11/17/21 11/18/21 11/18/21 22:59 06:59 14:59 Intake Total 1740 / 2713.75 1450 / 4163.75 Balance 1740 / 2713.75 1450 / 4163.75 Weight last 48 hrs Weight 115 lb Physical Exam Narrative: GENERAL: Patient is alert, awake and oriented x3. [] NECK: No jugular vein distension. [] HEENT: No cyanosis. No icterus. No pallor. [] HEART: Regular S1 and S2. No murmur, rub or gallop. [] LUNGS: Clear to auscultate bilaterally. [] ABDOMEN: Soft, nontender and nondistended. Positive bowel sounds. No guarding, rebound or tenderness. [] CENTRAL NERVOUS SYSTEM: Grossly nonfocal. [] EXTREMITIES: Lower extremities with 1+ edema bilaterally. Pulses palpable in the lower extremities, both dorsalis pedis and posterior tibial. [] Data : 11/18/21 04:10 11/18/21 04:10 A&P Assessment and plan (1) Non-ST elevation [place] (NSTEMI): Patient underwent successful revascularization of RCA with MIRTHA x1. Also had PCI of left circumflex artery with MIRTHA x2. She is doing well. Stable to be discharged from cardiology standpoint. Access site is normal Dual antiplatelet therapy with aspirin and Plavix for at least 1 year High intensity statin therapy. (2) COPD (chronic obstructive pulmonary disease): Smoking cessation strongly recommended. (3) Hypertension: Currently normotensive. May continue on the current medications. (4) Hypercholesteremia: Continue current medications continue statin therapy Plan Patient is stable to be discharged from cardiology standpoint Attestations Medical Necessity Statement*: Care expected to cross 2 midnights Coding Level of Care Code Acute Juvenile Detention Officer for Cailin Torres Diagnoses Non-ST elevation [place] (NSTEMI) I21.4 COPD (chronic obstructive pulmonary disease) J44.9 Hypertension I10 Hypercholesteremia E78.00
--- NOTE | 2021-11-18 11:23 | P.DS_ITS ---
Discharge Providers Date of Admission: 11/16/21 20:52 Date of Discharge: November 18, 2021 Attending Provider at Admission: Sridhar Padilla MD Attending Provider at Discharge: Marin Latham Primary Care Provider: Tramaine Elias MD Diagnoses at Discharge Discharge Diagnosis (1) Non-ST elevation NE (NSTEMI): Status: Acute (2) COPD (chronic obstructive pulmonary disease): Status: Acute (3) Hypertension: Status: Acute (4) Hypercholesteremia: Status: Acute Reason for Visit Reason for Visit: cp Hospital Course Hospital Course Pleasant 61-year-old lady heavy smoker, with HTN, HLD, COPD, anxiety and depression, was admitted for assessment management of NSTEMI, with chest pain on presentation, troponin elevation, echocardiogram and EKG suggestive of ischemia in RCA territory. She was treated for NSTEMI, underwent coronary angiography with finding of several points of severe narrowing and underwent coronary stenting. She has been doing well subsequently, without chest pain. Access site with small bruise. She is ambulating in the pedro. She is asked to continue aspirin, Plavix, beta-leticia, statin. She is encouraged to continue working to try to quit smoking which has been very difficult for her since the loss of her son. Continue to work with her to help her quit smoking. Consider whether it is safe for her to still continue estrogen. Continue follow-up regarding other conditions, follow-up after recent back surgery, as well as chronic underlying medical problems. Physical Exam Narrative: Family with her Const: COMMON NORMALS: patient oriented x3 and alert GENERAL APPEARANCE: cooperative ORIENTATION/CONSCIOUSNESS: Yes awake Neck/C-Spine: COMMON NORMALS: no JVD Resp: COMMON NORMALS: normal respiratory effort and clear to auscultation bilaterally AUSCULTATION: clear to auscultation bilaterally Cardio: COMMON NORMALS: no JVD, regular rhythm, S1 normal heart sound present, S2 normal heart sound present and No murmurs present (Cardio) RHYTHM: regular rhythm HEART SOUNDS: S1 normal heart sound present and S2 normal heart sound present Extremity: COMMON NORMALS: no joint enlargement and no pedal edema OTHER: Right wrist access site, small bruise. No pulsatile mass. Right hand perfused. Neuro: COMMON NORMALS: patient oriented x3 and moves all extremities SENSORIUM/ORIENTATION: Yes alert Discharge Data Studies Completed and Pending Completed Studies During Hospitalization Category Date Time Status CTA chest [CT angio chest PE protcl [id number]] Stat Cat Scan 11/16/21 20:01 Completed XR chest 1V portable [id number] Stat Exams 11/16/21 17:06 Completed CV. echo complete* [id number] Stat Ultrasound 11/16/21 20:58 Completed Pending at discharge Category Date Time Status WIRE BRUSHER request for service Routine Exams 11/17/21 12:15 Ordered Complete Blood Count w/Auto AM LABS Lab 11/19/21 04:00 Ordered Comprehensive Metabolic Panel AM LABS Lab 11/19/21 04:00 Ordered Radiology Impressions Chest X-Ray 11/16/21 17:06 IMPRESSION: No acute findings. Chest CTA 11/16/21 20:01 IMPRESSION: Negative for pulmonary embolism. No acute findings. Laboratory Results WBC 16.0 10^3/uL (4.0-10.0) H 11/18/21 04:10 RBC 3.26 10^6/uL (4.1-5.3) L 11/18/21 04:10 Hgb 9.4 g/dL (11.5-15.3) L 11/18/21 04:10 Hct 29.9 % (37.0-47.0) L 11/18/21 04:10 MCV 91.7 fl (81-99) 11/18/21 04:10 MCH 28.8 pg (28.0-34.0) 11/18/21 04:10 MCHC 31.4 g/dL (30.0-36.0) 11/18/21 04:10 RDW 13.8 % (12.1-15.1) 11/18/21 04:10 Plt Count 625 10^3/cmm (130-400) H 11/18/21 04:10 MPV 11.0 fL (7.4-10.4) H 11/18/21 04:10 Neut % (Auto) 58.1 % 11/18/21 04:10 Lymph % (Auto) 31.1 % 11/18/21 04:10 Banner % (Auto) 10.0 % 11/18/21 04:10 Eos % (Auto) 0.1 % 11/18/21 04:10 Baso % (Auto) 0.3 % 11/18/21 04:10 Neut # (Auto) 9.29 10^3/uL (1.8-7.7) H 11/18/21 04:10 Lymph # (Auto) 5.0 10^3/uL (0.8-4.8) H 11/18/21 04:10 Banner # (Auto) 1.6 10^3/uL (0.2-0.9) H 11/18/21 04:10 Eos # (Auto) 0.0 10^3/uL (0.0-0.8) 11/18/21 04:10 Baso # (Auto) 0.0 10^3/uL (0.0-0.1) 11/18/21 04:10 Nucleated RBC % (auto) 0 % 11/18/21 04:10 Nucleated RBCs # 0.0 /100WBC 11/18/21 04:10 PT 15.10 SECONDS (12.1-14.9) H 11/17/21 03:20 INR 1.16 (0.8-1.2) 11/17/21 03:20 APTT 41.5 SECONDS (23.9-36.7) H 11/17/21 03:20 D-Dimer 2.14 ug/mIFEU (0-0.59) H 11/16/21 19:18 Sodium 138 mmol/L (136-145) 11/18/21 04:10 Potassium 3.7 mmol/L (3.5-5.1) 11/18/21 04:10 Chloride 101 mmol/L (98-107) 11/18/21 04:10 Carbon Dioxide 23 mmol/L (22-29) 11/18/21 04:10 Anion Gap 17.7 (5-19) 11/18/21 04:10 BUN 9 mg/dL (8-23) 11/18/21 04:10 Creatinine 0.5 mg/dL (0.5-0.9) 11/18/21 04:10 GFR Calculation 125.9 mL/min (90-130) 11/18/21 04:10 Glucose 101 mg/dL (65-115) 11/18/21 04:10 POC Glucose 139 mg/dL (70-110) H 11/17/21 06:03 Estimat Average Glucose 105 11/17/21 03:20 Hemoglobin A1c 5.3 % (4.0-6.0) 11/17/21 03:20 Calculated Osmolality 285 mOsm/kg (285-295) 11/18/21 04:10 Calcium 9.3 mg/dL (8.5-10.5) 11/18/21 04:10 Magnesium 2.1 mg/dL (1.7-2.3) 11/17/21 03:20 Total Bilirubin 0.2 mg/dL (0.15-1.2) 11/18/21 04:10 AST 71 U/L (0-32) H 11/18/21 04:10 ALT 37 U/L (0-33) H 11/18/21 04:10 Alkaline Phosphatase 364 U/L (35-105) H 11/18/21 04:10 Troponin T Baseline 81 ng/L (0-10) H 11/16/21 17:23 Troponin T 120 Minute 265.5 ng/L (0-10) H 11/16/21 19:18 Delta Troponin T 184.5 ABS# (0-10) H* 11/16/21 19:18 Troponin T Hi Sens 6Hr 568.6 ng/L (0-10) H 11/16/21 23:11 Troponin T Hi Sens 6Hr Delta 487.6 ng/L (0-12) H* 11/16/21 23:11 NT-Pro-B Natriuret Pep 1587 pg/mL (0-125) H 11/17/21 03:20 Total Protein 6.7 g/dL (6.6-8.7) 11/18/21 04:10 Albumin 3.3 g/dL (3.5-5.2) L 11/18/21 04:10 Globulin 3.4 g/dL (1.3-4.6) 11/18/21 04:10 Triglycerides 143 mg/dL (0-150) 11/17/21 03:20 Cholesterol 109 mg/dL (0-200) 11/17/21 03:20 LDL Cholesterol, Calc 55 mg/dL (50-129) 11/17/21 03:20 HDL Cholesterol 25 mg/dL (60-100) L 11/17/21 03:20 LDL/HDL Ratio 2.20 RATIO (0.00-3.22) 11/17/21 03:20 Cholesterol/HDL Ratio 4.36 mg/dL (0.0-4.40) 11/17/21 03:20 TSH 0.69 uIU/mL (0.27-4.20) 11/17/21 03:20 Vitals Last Vital Signs Temp 98.2 F 11/18/21 07:21 Pulse 79 11/18/21 11:21 Resp 16 11/18/21 11:21 BP 98/65 11/18/21 11:21 Pulse Ox 98 11/18/21 11:21 O2 Del Method 11/18/21 11:21 Discharge Plan Discharge Patient Disposition: Home Condition: Stable Prescriptions: New acetaminophen 325 mg Tablet 650 mg PO Q6H PRN (Reason: Mild/Mod Pain Or Temp >/= 101) Qty: 30 0RF aspirin 81 mg Tablet,Delayed Release (Dr/Ec) 81 mg PO DAILY Qty: 90 0RF clopidogrel 75 mg Tablet 75 mg PO DAILY Qty: 90 0RF nitroglycerin 0.4 mg Tablet, Sublingual 0.4 mg sublingual Q5M PRN (Reason: Chest Pain) Qty: 25 0RF metoprolol tartrate 25 mg Tablet 25 mg PO BID@0900,2100 Qty: 180 0RF nicotine 21 mg/24 hr Patch 24 Hour 1 patch transdermal DAILY Qty: 90 0RF nicotine (polacrilex) 4 mg Lozenge 4 mg mucous membrane Q2H PRN (Reason: Nicotine Cravings) Qty: 90 2RF Continued diclofenac sodium 75 mg tablet,delayed release (DR/EC) 75 mg PO BID 30 Days Qty: 60 8RF Hold Instructions: Resume on 11/25/21. lisinopril 20 mg tablet 20 mg PO DAILY Qty: 90 2RF citalopram 40 mg tablet 40 mg PO DAILY Qty: 90 1RF pregabalin [Lyrica] 200 mg capsule 200 mg PO BID 30 Days Qty: 60 5RF clonazepam 1 mg tablet 1 mg PO TID Qty: 90 5RF omeprazole 20 mg capsule,delayed release(DR/EC) 20 mg PO DAILY Qty: 90 1RF (DME) Bone Growth Stimulator E0748 See Rx Instructions .Route .MEDSUPPLY Qty: 1 0RF Rx Instructions: As directed Spiriva with HandiHaler 18 mcg Capsule, W/Inhalation Device 1 cap INHALATION DAILY Rx Instructions: puncture 1 cap using device; one dose = 2 inhalations cyclobenzaprine 10 mg tablet 10 mg PO BEDTIME estradiol 1 mg tablet 1 mg PO DAILY hydrocodone-acetaminophen 10-325 mg tablet 1 - 2 tab PO Q6H PRN (Reason: Pain) Changed atorvastatin 20 mg tablet 40 mg PO BEDTIME Qty: 90 0RF Discharge Orders: Discharge Order (Routine); Ordered 11/18/21 Ordered By: Marin Latham Referrals: Tramaine Elias MD [Primary Care Provider] - 4-7 days (Please call for an follow-up appointment with Dr. Elias in 4 to 7 days. ) Howard Pires MD [Physician] - 1 month Jennifer Caldera FNP [Nurse Practitioner] - 1 week (Please call for an follow-up appointment with Jennifer Caldera at [facility] in 1 week. During this appoinmtment you be scheduled for an follow-up appointment with Dr. Pires in 1 month. ) Discharge Diet: Cardiac Patient Instructions: Acetaminophen (By mouth), Clopidogrel (By mouth), How to Stop Smoking (GEN), Cigarette Smoking and Your Health (GEN), Coronary Intravascular Stent Placement (GEN), Opioid Safety Activity Restrictions/Additional Instructions: Please make sure that you missed any doses of aspirin and Plavix as this may lead to closure of your stent, heart attack and certifications. Please avoid lifting more than 2 pounds for 3 days. Follow-up with cardiology for reassessment of access site and your condition in 1 week in office. In case you experience any pain, numbness in your right hand, any pulsatile mass or other concerning symptoms, seek medical attention without delay. Continue follow-up regarding chronic conditions, including Behavioral Health Care, orthopedics. Continue to work with your primary doctor to quit smoking. Discuss with your primary doctor whether it is safe to continue estrogen. Discharge Attestations Time Spent in Discharge Care*: greater than 30 min Quality Metrics Clinical Quality Measures [ Acute Myocardial Infaction { Clinical Trial Participant: No; Contraindication to aspirin: None; Aspirin prescribed; Contraindication to statin: None; Statin prescribed; Contraindication to PCI: None; PCI performed;}] Coding Level of Care Code Acute [facility] note Diagnoses Non-ST elevation NE (NSTEMI) I21.4 COPD (chronic obstructive pulmonary disease) J44.9 Hypertension I10 Hypercholesteremia E78.00
--- NOTE | 2021-11-18 12:07 | PC.NURSE ---
Discharge Note Patient discharged to home via private vehicle accompanied by daughter Discharge instructions reviewed with patient and/or electronics parts sales representative. Mobile pharmacy medications and/or prescriptions provided. Pt stated she wants it to call to [facility]. Belongings/home medications returned.
== END 2021-11-18 12:24 | disposition home or self-care (01) | DRG 247 ==
LOC: ER 20:53 → MEDSURG 23:09
PROVIDERS: Emergency Medicine; Family Medicine; Internal Medicine; Internal Medicine Cardiovascular Disease; Admitting Provider Internal Medicine; Emergency Provider Emergency Medicine; PCP Family Medicine; Visit Provider Internal Medicine
PROC: 027136Z Dilation of Coronary Artery, Two Arteries with Three Drug-eluting Intraluminal Devices, Percutaneous Approach (ICD-10-PCS; principal; 2021-11-17 13:00)
DX: I21.4 Non-ST elevation (NSTEMI) myocardial infarction (principal); I25.10 Atherosclerotic heart disease of native coronary artery without angina pectoris; I10 Essential (primary) hypertension; J44.9 Chronic obstructive pulmonary disease, unspecified; Z98.1 Arthrodesis status; F17.200 Nicotine dependence, unspecified, uncomplicated; F41.8 Other specified anxiety disorders; E78.00 Pure hypercholesterolemia, unspecified; E78.5 Hyperlipidemia, unspecified; Z79.890 Hormone replacement therapy; Z79.891 Long term (current) use of opiate analgesic; Z82.49 Family history of ischemic heart disease and other diseases of the circulatory system
CPT/HCPCS: 36415; 36416; 71045; 71275; 80048; 80053; 80061; 82962; 83036; 83735; 83880; 84443; 84484; 85025; 85347; 85378; 85610; 85730; 92978; 93005; 93306; 93458; 94640; 96360; 96372; 96374; 96375; 99152; 99153; 99285; C1725; C1753; C1769; C1874; C1887; C1894; C9600; C9601; J1200; J1644; J1650; J2250; J2920; J2930; J3010; J3490; J7030; J7050; J7799; Q9967

== ENCOUNTER → 2021-11-22 13:45 | Outpatient (BNVA) | payer MEDICAID, SELFPAY | PROVIDERS: PCP Family Medicine; Visit Provider Nurse Practitioner Family | DX: I25.10 Atherosclerotic heart disease of native coronary artery without angina pectoris (principal); F17.210 Nicotine dependence, cigarettes, uncomplicated; I10 Essential (primary) hypertension | CPT/HCPCS: 36415; 80048; 99214 ==

== ENCOUNTER → 2021-12-07 10:32 | Outpatient (BNVA) | payer MEDICAID, SELFPAY | PROVIDERS: PCP Family Medicine; Visit Provider Physician Assistant | DX: Z47.89 Encounter for other orthopedic aftercare (principal); Z98.1 Arthrodesis status | CPT/HCPCS: 72100; 99024 ==

== ENCOUNTER → 2022-01-04 12:55 | Outpatient (BNVA) | payer MEDICAID, SELFPAY | PROVIDERS: PCP Family Medicine; Visit Provider Physician Assistant | DX: M70.61 Trochanteric bursitis, right hip (principal); Z47.89 Encounter for other orthopedic aftercare; Z98.1 Arthrodesis status | CPT/HCPCS: 20610; 72100; 99024; J1100; J2795 ==

== ENCOUNTER → 2022-02-26 10:40 | Outpatient (BNVA) | payer MEDICAID, SELFPAY | PROVIDERS: PCP Family Medicine; Visit Provider Internal Medicine Cardiovascular Disease | DX: I25.10 Atherosclerotic heart disease of native coronary artery without angina pectoris (principal); I10 Essential (primary) hypertension; E78.00 Pure hypercholesterolemia, unspecified; J44.9 Chronic obstructive pulmonary disease, unspecified; F17.210 Nicotine dependence, cigarettes, uncomplicated | CPT/HCPCS: 99214 ==

== ENCOUNTER → 2022-04-05 13:03 | Outpatient (BNVA) | payer MEDICAID, SELFPAY | PROVIDERS: PCP Family Medicine; Visit Provider Physician Assistant | DX: Z98.1 Arthrodesis status (principal) | CPT/HCPCS: 72100; 99213 ==

== ENCOUNTER 2022-05-28 08:51 | Outpatient (CLI) | payer MEDICAID, SELFPAY ==
--- NOTE | 2022-05-28 08:59 | CT_ITS ---
WS: [id number] LDCT LUNG CANCER SCREENING TECHNIQUE: Noncontrast CT of the chest with coronal and sagittal reformatted images. CLINICAL INFORMATION: NICOTINE DEPENDENCE,CIGARETTES COMPARISON: May 23, 2021 DLP: 75.91 mGy.cm DIvol: Mean CTDIvol: 1.60 (mGy) All CT scans at [facility] use at least one of these dose optimization techniques: automat ed exposure control; mA and/or kV adjustment per patient size (includes targeted exams where dose is matched to clinical indication); or iterative reconstruction. FINDINGS: Normal caliber thoracic aorta. Coronary calcification. No mediastinal or hilar lymphadenopathy. No ax illary lymphadenopathy. Calcified granuloma RIGHT lower lobe. No focal consolidation or pleural fluid . Mild hazy bilateral groundglass attenuation throughout both lungs unchanged since May 23, 2021. A few tiny subcentimeter pulmonary nodules in the LEFT lung apex unchanged. 4 mm subpleural nodule RIG HT lung apex. Mild thoracic kyphosis. Small esophageal hiatal hernia. Prior cholecystectomy. CT/CT lung screening [id number] IMPRESSION: LUNG-RADS: 2-Benign Appearance or Behavior FOLLOW UP: 12 Month: Continue annual screening with LDCT
== END 2022-05-28 08:52 | disposition home or self-care (01) ==
LOC: RAD 08:54
PROVIDERS: PCP Family Medicine; Visit Provider Family Medicine
DX: Z12.2 Encounter for screening for malignant neoplasm of respiratory organs (principal); F17.210 Nicotine dependence, cigarettes, uncomplicated
CPT/HCPCS: 71271

== ENCOUNTER 2022-06-07 14:48 | Outpatient (CLI) | payer MEDICAID, SELFPAY ==
--- NOTE | 2022-06-07 15:10 | MM_ITS ---
WS: [id number] BILATERAL 3D TOMOSYNTHESIS DIGITAL SCREENING MAMMOGRAPHY WITH CAD CLINICAL INFORMATION: SCREEN HISTORY: Screening mammogram. RIGHT breast soreness COMPARISON: June 02, 2021 TECHNIQUE: Bilateral CC and MLO views. FINDINGS: The breasts are composed of heterogeneous fibroglandular density tissue, which can limit the detectio n of small underlying mass lesions. No suspicious mass, asymmetry, calcifications, or architectural d istortion. No evidence of malignancy. MM/[place] [id number] IMPRESSION: BI-RADS: 1-Negative FOLLOW UP: 1 Year Follow-up Recommend return to annual screening mammography.
== END 2022-06-07 14:49 | disposition home or self-care (01) ==
LOC: RAD 14:54
PROVIDERS: PCP Family Medicine; Visit Provider Family Medicine
DX: Z12.31 Encounter for screening mammogram for malignant neoplasm of breast (principal)
CPT/HCPCS: 77063; 77067

== ENCOUNTER → 2022-06-19 08:13 | Outpatient (BNVA) | payer MEDICAID, SELFPAY | PROVIDERS: PCP Family Medicine; Visit Provider Surgery | DX: K21.9 Gastro-esophageal reflux disease without esophagitis (principal); R10.816 Epigastric abdominal tenderness; R11.2 Nausea with vomiting, unspecified | CPT/HCPCS: 99203 ==

== ENCOUNTER 2022-07-04 07:40 | Day surgery (SDC) | payer MEDICAID, SELFPAY ==
[2022-07-02 12:26] VITALS: BMI 22.8
[2022-07-04] MEDS: sodium chloride 0.9% 1,000 ML 30 ML IV (08:12)
[2022-07-04 08:13] VITALS: BP 105/57; PULSE 70; RESP 17; TEMP 36.6; O2SAT 97
--- NOTE | 2022-07-04 10:20 | P.ANESASSM_ITS ---
Pre-Anesthetic Assessment Height/Weight: Height 1.57 m Weight 56.699 kg Temp Pulse Resp BP Pulse Ox O2 Del Method 97.8 F 70 17 105/57 97 Room Air 07/04/22 08:13 07/04/22 08:13 07/04/22 08:13 07/04/22 08:13 07/04/22 08:13 07/04/22 08:13 Preop Diagnosis: abdominal pain Operation Date: 07/04/22 09:30 Proposed Procedures p EGD(Not Applicable) - Hugo Solis, DO Was Beta Lacy taken within 24 hours: Yes Was Clonidine taken within 24 hours: N/A Last intake: Intake Last Liquid Date 07/03/22 Last Liquid Time 23:00 Last Solid Date 07/03/22 Last Solid Time 18:00 Social Tobacco 1.5 ppd pack(s) per day 40 pack years Exam alert and oriented x 3 Airway Submandibular: within normal limits Cervical ROM: within normal limits Mallampati: Class II Dentition: false and partials (pt states she wants to keep partials in despite the risks of being broken on the lower ) History/ROS No significant history except as noted Pulmonary Chronic Obstructive Pulmonary Disease CV/HEM Coronary Artery Disease, Hypertension and Myocardial Infarction (Oct 2021 stentsX2) None reported Hepatic None reported GI Gastroesophageal Reflux Disease Musc/skel Fibromyalgia and Lower Back Pain Neuropsych Anxiety Anesthetic Plan ASA status: 3 Anesthesia: MAC Risk of > 500 ml blood loss (7ml/kg in children): No Medications/Allergies Home Medications Medication Instructions Recorded Confirmed Last Taken Type diclofenac sodium 75 mg 75 mg PO BID 30 days #60 tabs 10/12/20 07/04/22 07/03/22 Rx tablet,delayed release citalopram 40 mg tablet 40 mg PO DAILY #90 tabs 01/09/21 07/04/22 07/03/22 Rx pregabalin 200 mg capsule (Lyrica) 200 mg PO BID 30 days #60 caps 02/20/21 07/04/22 07/03/22 Rx omeprazole 20 mg capsule,delayed 20 mg PO DAILY #90 caps 03/13/21 07/04/22 07/03/22 Rx release estradiol 1 mg tablet 1 mg PO DAILY 10/20/21 07/04/22 07/03/22 History tiotropium bromide 18 mcg capsule 1 cap inhalation DAILY 09/04/1107/04/22 07/02/22 History with inhalation device (Spiriva with HandiHaler) Bone Growth Stimulator E0748 #1 ea 10/30/21 06/19/22 Unknown Rx hydrocodone 10 mg-acetaminophen 1 - 2 tab PO Q6H PRN Pain 11/17/21 07/04/22 07/02/22 History 325 mg tablet acetaminophen 325 mg tablet 650 mg PO Q6H PRN Mild/Mod Pain Or 11/18/21 07/04/22 Unknown Rx Temp >/= 101 #30 tabs aspirin 81 mg tablet,delayed 81 mg PO DAILY #90 tabs 11/18/21 07/04/22 06/26/22 Rx release atorvastatin 20 mg tablet 40 mg PO BEDTIME #90 tabs 11/18/21 07/04/22 07/03/22 Rx clopidogrel 75 mg tablet 75 mg PO DAILY #90 tabs 11/18/21 07/04/22 06/26/22 Rx nitroglycerin 0.4 mg sublingual 0.4 mg sublingual Q5M PRN Chest 11/18/21 07/04/22 Unknown Rx tablet Pain #25 tabs lisinopril 10 mg tablet 10 mg PO DAILY #90 tabs 11/22/21 07/04/22 07/03/22 Rx clonazepam 1 mg tablet 1 mg PO DAILY PRN Anxiety 02/26/22 07/04/22 07/03/22 History metoprolol tartrate 25 mg tablet 12.5 mg PO BID 30 days #30 tabs 02/26/22 07/04/22 07/03/22 Rx pantoprazole 40 mg tablet,delayed 40 mg PO BID 6 weeks #84 tabs 06/19/22 07/04/22 07/03/22 Rx release (Protonix) Allergies Allergy/AdvReac Type Severity Reaction Status Date / Time codeine Allergy ITCH Verified 07/04/22 08:05 Iodinated Contrast Media Allergy RASH Verified 07/04/22 08:05 nalbuphine [From Nubain] Allergy ANAPHYLAXIS Verified 07/04/22 08:05 oxycodone [From Percocet] Allergy ITCHING Verified 07/04/22 08:05 penicillin V Allergy SWELLING Verified 07/04/22 08:05 Current Medications Generic Name Dose Route Start Last Admin Trade Name Freq PRN Reason Stop Dose Admin Sodium Chloride 1,000 mls @ 30 mls/hr 07/04/22 08:00 07/04/22 08:12 Sodium Chloride 0.9% IV 07/05/22 07:59 30 mls/hr .Q24H MASON Administration PFSH Anesthesia Medical History Anxiety and depression Atherosclerosis of coronary artery COPD (chronic obstructive pulmonary disease) Hypercholesteremia Hypertension Hypoestrogenism Insomnia Lumbar back pain with radiculopathy affecting lower extremity Surgical History History of back surgery History of cholecystectomy History of esophagogastroduodenoscopy (EGD) Dr. Young History of hemorrhoidectomy History of PTCA History of total hysterectomy Hx of colonoscopy 2021 Family History Grandmother CAD (coronary artery disease) Mother CAD (coronary artery disease) Cancer Diabetes Sister Lung disease Denies family history of Clotting disorder Dementia Chronic kidney disease (CKD) Suicide Anesthesia complication Bleeding disorder Stroke Social History Smoking and tobacco status: heavy tobacco smoker cigarettes Packs smoked per day: 2 (pt report several pack per day) Years cigarettes smoked: 45 and e- cigarettes E-Cigarette Details: vaporizer device Quit status (tobacco): considering quitting Second hand smoke exposure: No Smoking risk assessment/counseling performed?: No Alcohol intake: never Substance/Drug Use: never Data Anesthesia Cardiac Studies: Echocardiogram 11/16/21
--- NOTE | 2022-07-04 10:31 | W.PM.OPSUD ---
Surgery/Procedure H&P Update DATE OF PROCEDURE: July 04, 2022 DATE H&P PERFORMED: 06/19/21 H&P UPDATE INFORMATION: I have reviewed H&P completed within last 30 days, I have examined patient prior to procedure and No changes to prior documentation PREOP DIAGNOSIS: abdominal pain PLANNED PROCEDURE: Operation Date: 07/04/22 09:30 Proposed Procedures p EGD(Not Applicable) - Hugo Solis DO
[2022-07-04 10:50] VITALS: BP 101/60; PULSE 66; RESP 20; TEMP 36.3; O2SAT 92
[2022-07-04 11:02] VITALS: BP 121/70; PULSE 70; RESP 18; O2SAT 94
[2022-07-04 11:12] VITALS: BP 100/68; PULSE 70; RESP 18; O2SAT 93
--- NOTE | 2022-07-04 14:25 | ANE.PACU2 ---
Inpatient post-anesthesia follow up: Airway intact: Yes Vital signs: Temperature 97.4 F Pulse Rate 70 Respiratory Rate 18 Blood Pressure 100/68 Pulse Oximetry 93 Oxygen Delivery Me thod Room Air Oxygen Flow Rate Fraction of Inspir ed Oxygen Hydration adequate: Yes Nausea and vomiting: No Pain level: 1 Mental status: Baseline
== END 2022-07-04 11:30 | disposition home or self-care (01) ==
PROVIDERS: PCP Family Medicine; Visit Provider Surgery
PROC: 0DJ08ZZ Inspection of Upper Intestinal Tract, Via Natural or Artificial Opening Endoscopic (ICD-10-PCS; CPT 43235; principal; 2022-07-04 09:30)
DX: K21.9 Gastro-esophageal reflux disease without esophagitis (principal); J44.9 Chronic obstructive pulmonary disease, unspecified; I25.10 Atherosclerotic heart disease of native coronary artery without angina pectoris; I10 Essential (primary) hypertension; I25.2 Old myocardial infarction; Z95.5 Presence of coronary angioplasty implant and graft; Z79.891 Long term (current) use of opiate analgesic; Z79.01 Long term (current) use of anticoagulants; F41.9 Anxiety disorder, unspecified; F32.A Depression, unspecified; F17.210 Nicotine dependence, cigarettes, uncomplicated; Z79.82 Long term (current) use of aspirin; Z79.02 Long term (current) use of antithrombotics/antiplatelets; R10.816 Epigastric abdominal tenderness; R11.2 Nausea with vomiting, unspecified; K29.50 Unspecified chronic gastritis without bleeding; K26.9 Duodenal ulcer, unspecified as acute or chronic, without hemorrhage or perforation
CPT/HCPCS: 43239; 88305; 88342; J2704; J7030

== ENCOUNTER → 2022-07-24 17:28 | Outpatient (BNVA) | payer MEDICAID, SELFPAY | PROVIDERS: PCP Family Medicine; Visit Provider Surgery | DX: Z09 Encounter for follow-up examination after completed treatment for conditions other than malignant neoplasm (principal) | CPT/HCPCS: 99212 ==

== ENCOUNTER → 2022-09-03 11:25 | Outpatient (BNVA) | payer SELFPAY | PROVIDERS: PCP Family Medicine; Visit Provider Internal Medicine Cardiovascular Disease | DX: E78.5 Hyperlipidemia, unspecified (principal) | CPT/HCPCS: 36415; 80061; 80076 ==

== ENCOUNTER → 2022-09-05 11:34 | Outpatient (BNVA) | payer MEDICAID, SELFPAY | PROVIDERS: PCP Family Medicine; Visit Provider Family Medicine | DX: D64.9 Anemia, unspecified (principal) | CPT/HCPCS: 80053; 82728; 83550; 85025 ==

== ENCOUNTER → 2023-04-15 15:42 | Outpatient (BNVA) | payer SELFPAY | PROVIDERS: PCP Family Medicine; Visit Provider Family Medicine | DX: D64.9 Anemia, unspecified (principal) | CPT/HCPCS: 80053; 82728; 83550; 85025 ==

== ENCOUNTER → 2023-09-04 11:21 | Outpatient (BNVA) | payer SELFPAY | PROVIDERS: PCP Family Medicine; Visit Provider Internal Medicine Cardiovascular Disease | DX: E78.5 Hyperlipidemia, unspecified (principal) | CPT/HCPCS: 36415; 80061; 80076 ==

== ENCOUNTER → 2024-06-24 15:12 | Outpatient (BNVA) | payer SELFPAY | PROVIDERS: PCP Family Medicine; Visit Provider Family Medicine | DX: D64.9 Anemia, unspecified (principal); E78.00 Pure hypercholesterolemia, unspecified | CPT/HCPCS: 80053; 80061; 82306; 82607; 84439; 84443; 85025 ==

== ENCOUNTER → 2025-01-26 11:59 | Outpatient (BNVA) | payer SELFPAY ==
[2024-06-26 12:44] VITALS: BP 110/64; BMI 22.4
== END ==
PROVIDERS: PCP Family Medicine; Visit Provider Registered Nurse Neonatal Intensive Care
DX: R05.9 Cough, unspecified (principal)
CPT/HCPCS: 87400; 87426